=== PATIENT | male | born 1935 | race Caucasian/White ===

== ENCOUNTER → 2017-01-16 | Outpatient (CLI) | payer MEDICARE ==
[~2017-01-16] MED LIST: ATOR10 PO; CARV40 PO; COUM5TAB PO; DIGO.125 PO; PRED20 PO; PRIN10TA PO; PROT40TA PO; SUCR1TAB6 PO; TAMS0.4C67 PO
[2017-01-16 13:32] LABS: AUTOMATED NEUTROPHIL # 4.6 TH/MM3 (1.8-7.7); BASOPHIL % 0.5 % (0.0-2.0); EOSINOPHIL # 0.4 TH/MM3 (0-0.4); EOSINOPHIL % 6.2 % (0.0-4.0); LYMPH % 18.5 % (9.0-44.0); LYMPHOCYTE # 1.3 TH/MM3 (1.0-4.8); MEAN CELL VOLUME 93.4 FL (80.0-100.0); MEAN CORPUSCULAR HEMOGLOBIN 31.8 PG (27.0-34.0); MEAN CORPUSCULAR HGB CONC 34.1 % (32.0-36.0); MONO % 8.7 % (0.0-8.0); NEUT % 66.1 % (16.0-70.0); PLATELET COUNT 83 TH/MM3 (150-450); RED BLOOD COUNT 4.18 MIL/MM3 (4.50-5.90); RED CELL DISTRIBUTION WIDTH 14.7 % (11.6-17.2)
[2017-01-16 13:35] LABS: HEMO FLAGS AUTO DIFF
[2017-01-16 13:43] LABS: BICARBONATE 27.2 MEQ/L (21.0-32.0); POTASSIUM 3.5 MEQ/L (3.5-5.1); URIC ACID 2.7 MG/DL (2.6-7.2)
[2017-01-16 13:56] LABS: BLOOD, URINE NEG (NEG); GLUCOSE,URINE NEG (NEG); KETONE, URINE NEG (NEG); MUCUS URINE FEW /lpf (OCC); NITRITE,URINE NEG (NEG); PH, URINE 5.5 (5.0-8.5); URINE COLOR YELLOW (YELLW/STRAW)
[2017-01-16 14:11] LABS: OVALOCYTES 1+ (NORMAL); PLATELET ESTIMATE SMEAR LOW (NORMAL); PLATELET MORPHOLOGY NORMAL (NORMAL); SCAN/DIFF AUTO DIFF CONFIRMED
== END ==
LOC: PLAB 09:42
PROVIDERS: ATTEND Internal Medicine Nephrology
DX: E55.9 Vitamin D deficiency, unspecified (principal); M10.9 Gout, unspecified; N18.2 Chronic kidney disease, stage 2 (mild)
CPT/HCPCS: 36415; 80069; 81001; 82306; 82570; 84156; 84550; 85025

== ENCOUNTER 2018-01-13 18:03 | Emergency (ER) | payer MEDICARE ==
[~2018-01-13] VITALS: Ht 172.7 cm; Wt 77.0 kg
[2018-01-13 18:04] VITALS: BP 137/64; PULSE 80; RESP 16; TEMP 97.7; O2SAT 97
[2018-01-13] MEDS ORDERED: RANO500 PO ×2 (18:20→18:21)
[2018-01-13] MEDS ORDERED: ZANT150T2 PO (18:20)
[2018-01-13] MEDS ORDERED: DIGO0.25 PO (18:20)
[2018-01-13] MEDS ORDERED: FINA5TAB2 PO (18:20)
[2018-01-13] MEDS ORDERED: WARF-18 PO (18:20)
[2018-01-13] MEDS ORDERED: ISOS60TA PO (18:20)
[2018-01-13] MEDS ORDERED: SUCR1TAB PO (18:20)
[2018-01-13] MEDS ORDERED: TAMS5CAP PO (18:20)
[2018-01-13] MEDS ORDERED: LIPI10TA PO (18:20)
[2018-01-13] MEDS ORDERED: HYDR-3799 PO (18:20)
[2018-01-13] MEDS ORDERED: POTA-163 PO (18:20)
[2018-01-13] MEDS ORDERED: CARV6.252 PO (18:20)
[2018-01-13] MEDS ORDERED: WARF4TAB52 PO (18:20)
[2018-01-13] MEDS ORDERED: BUME2TAB PO (18:20)
[2018-01-13] MEDS ORDERED: LIDOCAINE 1%/EPINEPHrine 1:100,000 SOLN 30 ML VIAL ONE (18:40)
--- NOTE | 2018-01-13 18:41 | PD ---
HPI . Nosebleed Chief Complaint: Nosebleed Time Seen by Provider: 18:18 Travel History International Travel<30 days: No Contact w/Intl Traveler<30days: No Traveled to known affect area: No History of Present Illness HPI This patient is on Coumadin. He presents with a nosebleed which started couple of hours ago. Bleeding is controlled with pressure but immediately recurs once he stops holding pressure. He states that his INR was last checked last week. PFSH Past Medical History Hx Anticoagulant Therapy: Yes (COUMADIN AND ASA 81MG) High Cholesterol: Yes Chest Pain: Yes Coronary Artery Disease: Yes Diminished Hearing: Yes (BILATERAL HEARING LOSS,WEARS HEARING AIDE,L.EAR) GERD: Yes Genitourinary: Yes (ENLARGED PROSTATE) Hypertension: Yes Medical other: Yes Myocardial Infarction: Yes (1995) Ulcer: Yes Tetanus Vaccination: > 5 Years Influenza Vaccination: Yes Past Surgical History AICD: Yes Appendectomy: Yes Cardiac Surgery: Yes Coronary Artery Bypass Graft: Yes (1987--TRIPLE BYPASS MECHANICAL MITRAL VALVE ) Pacemaker: Yes (PLACED IN 2005 REMOVED IN 2006--PACEMAKER/DEBIB PLACED( L.CHEST WALL)) Thoracic Surgery: Yes (2006--INFUSA PORT(R.CHEST WALL)) Other Surgery: Yes ("BALLOON IN R.GROIN FOR CIRCUALTION") Social History Alcohol Use: Yes (SOCIAL) Tobacco Use: No (QUIT 1987) Substance Use: No Allergies-Medications (Allergen,Severity, Reaction): Coded Allergies: lisinopril (Verified Allergy, Severe, COUGH, 01/13/18) chlorpheniramine (Unverified Allergy, Mild, PASSED OUT, 01/13/18) hydrocodone (Unverified Allergy, Mild, PASSED OUT, 01/13/18) furosemide (Verified Allergy, Unknown, 01/13/18) Reported Meds & Prescriptions Reported Meds & Active Scripts Active Reported Ranexa ER 12 HR (Ranolazine) 500 Mg Tab 500 Mg PO Q8HR Zantac (Ranitidine HCl) 150 Mg Tab 150 Mg PO DAILY Warfarin 2.5 Mg Tab 2.5 Mg PO DIRECTED Warfarin 1 Mg Tab 1 Mg PO DIRECTED Flomax (Tamsulosin HCl) 0.4 Mg Cap 0.4 Mg PO HS Sucralfate 1 Gram Tab 1 Gm PO TID on empty stomach Potassium Chloride ER (Potassium Chloride) 20 Meq Tab 20 Meq PO WEEKLY Isosorbide Mononitrate ER (Isosorbide Mononitrate) 60 Mg Tab 60 Mg PO DAILY Hydralazine HCl 25 Mg Tablet 25 Mg PO TID Finasteride 5 Mg Tab 5 Mg PO DAILY Do not crush. Digoxin 0.25 Mg Tab 0.25 Mg PO DAILY Carvedilol 6.25 Mg Tab 6.25 Mg PO BID Bumetanide 2 Mg Tab 2 Mg PO DIRECTED Lipitor (Atorvastatin Calcium) 10 Mg Tab 10 Mg PO HS Review of Systems Except as stated in HPI: all other systems reviewed are Neg Physical Exam Narrative GENERAL: Awake and alert and in no acute distress. SKIN: Warm and dry. HEAD: Normocephalic/atraumatic. EYES: Pupils are equal. Extraocular movements are intact. ENT: Bleeding from the right nostril. NECK: Normal range of motion. RESPIRATORY: Nonlabored respirations. MUSCULOSKELETAL: Atraumatic. NEUROLOGICAL: Nonfocal. PSYCHIATRIC: Appropriate mood and affect. Data Data Last Documented VS Vital Signs Date Time Temp Pulse Resp B/P (MAP) Pulse Ox O2 Delivery O2 Flow Rate FiO2 01/13/18 18:04 97.7 80 16 137/64 (88) 97 Orders Orders Prothrombin Time / Inr (Pt) (01/13/18 18:19) Lidocai-Epi 1%-1:100,000 Inj (Xylocaine- (01/13/18 18:40) Labs Laboratory Tests Test 01/13/18 18:25 Prothrombin Time 40.8 SEC Prothromb Time International Ratio 4.1 RATIO MDM Medical Decision Making Medical Screen Exam Complete: Yes Emergency Medical Condition: Yes Differential Diagnosis Differential diagnosis includes but is not limited to epistaxis due to an upper respiratory infection, coagulopathy, local trauma, nasal fracture Narrative Course This patient presents with chief complaint of epistaxis. He is on Coumadin. INR has been ordered. Procedures Procedure Narrative NASAL PACKING: The right nare was anesthetized topically with lidocaine with epinephrine. The nare was packed with Merocel sponge. The sponge had to be trimmed to fit his nostril. Adequate control of bleeding was obtained. The patient was observed without recurrence of bleeding. Patient tolerated procedure well. Diagnosis Primary Impression: Epistaxis Patient Instructions: General Instructions, Nosebleed (ED) Additional Instructions: Packing removal in about 24 hours. Your INR is 4.1. Please hold your Coumadin until your INR is around 3. Disposition: 01 DISCHARGE HOME Condition: Stable Serena Stark MD Jan 13, 2018 18:41
[2018-01-13 19:01] LABS: INTERNATIONAL NORMALIZED RATIO 4.1 RATIO; PROTHROMBIN TIME - PATIENT 40.8 SEC (9.8-11.6)
[2018-01-13 19:30] VITALS: BP 153/75
== END 2018-01-13 19:35 | disposition home or self-care (01) ==
LOC: PHED 18:03
DX: R04.0 Epistaxis (principal); E78.00 Pure hypercholesterolemia, unspecified; I25.10 Atherosclerotic heart disease of native coronary artery without angina pectoris; K21.9 Gastro-esophageal reflux disease without esophagitis; I10 Essential (primary) hypertension; I25.2 Old myocardial infarction; H91.93 Unspecified hearing loss, bilateral; Z79.01 Long term (current) use of anticoagulants; Z79.82 Long term (current) use of aspirin
CPT/HCPCS: 30901; 85610

== ENCOUNTER → 2018-02-05 | Outpatient (CLI) | payer MEDICARE ==
[~2018-02-05] MED LIST changes: -ATOR10 PO; +BUME2TAB PO; -CARV40 PO; +CARV6.252 PO; -COUM5TAB PO; -DIGO.125 PO; +DIGO0.25 PO; +FINA5TAB2 PO; +HYDR-3799 PO; +ISOS60TA PO; +LIPI10TA PO; +POTA-163 PO; -PRED20 PO; -PRIN10TA PO; -PROT40TA PO; +RANO500 PO; +SUCR1TAB PO; -SUCR1TAB6 PO; -TAMS0.4C67 PO; +TAMS5CAP PO; +WARF-18 PO; +WARF4TAB52 PO; +ZANT150T2 PO
[2018-02-05 14:33] LABS: AUTOMATED NEUTROPHIL # 5.2 TH/MM3 (1.8-7.7); BASOPHIL % 0.6 % (0.0-2.0); EOSINOPHIL # 0.4 TH/MM3 (0-0.4); EOSINOPHIL % 4.9 % (0.0-4.0); HEMATOCRIT 31.3 % (39.0-51.0); HEMOGLOBIN 10.6 GM/DL (13.0-17.0); LYMPH % 18.3 % (9.0-44.0); LYMPHOCYTE # 1.4 TH/MM3 (1.0-4.8); MEAN CELL VOLUME 90.5 FL (80.0-100.0); MEAN CORPUSCULAR HEMOGLOBIN 30.7 PG (27.0-34.0); MEAN CORPUSCULAR HGB CONC 33.9 % (32.0-36.0); MEAN PLATELET VOLUME 8.5 FL (7.0-11.0); MONO % 8.3 % (0.0-8.0); MONOCYTE # 0.6 TH/MM3 (0-0.9); NEUT % 67.9 % (16.0-70.0); PLATELET COUNT 210 TH/MM3 (150-450); RED BLOOD COUNT 3.46 MIL/MM3 (4.50-5.90); RED CELL DISTRIBUTION WIDTH 16.5 % (11.6-17.2); WHITE BLOOD COUNT 7.7 TH/MM3 (4.0-11.0)
== END ==
LOC: PLAB 09:27
PROVIDERS: ATTEND Internal Medicine Gastroenterology
DX: K92.2 Gastrointestinal hemorrhage, unspecified (principal)
CPT/HCPCS: 36415; 85025

== ENCOUNTER → 2018-02-11 | Outpatient (CLI) | payer MEDICARE ==
[2018-02-11 15:49] LABS: AUTOMATED NEUTROPHIL # 5.9 TH/MM3 (1.8-7.7); BASOPHIL % 0.5 % (0.0-2.0); EOSINOPHIL # 0.2 TH/MM3 (0-0.4); EOSINOPHIL % 2.6 % (0.0-4.0); HEMATOCRIT 29.9 % (39.0-51.0); HEMOGLOBIN 10.1 GM/DL (13.0-17.0); LYMPH % 18.6 % (9.0-44.0); LYMPHOCYTE # 1.6 TH/MM3 (1.0-4.8); MEAN CELL VOLUME 91.1 FL (80.0-100.0); MEAN CORPUSCULAR HEMOGLOBIN 30.6 PG (27.0-34.0); MEAN CORPUSCULAR HGB CONC 33.6 % (32.0-36.0); MEAN PLATELET VOLUME 9.1 FL (7.0-11.0); MONO % 8.2 % (0.0-8.0); MONOCYTE # 0.7 TH/MM3 (0-0.9); NEUT % 70.1 % (16.0-70.0); PLATELET COUNT 182 TH/MM3 (150-450); RED BLOOD COUNT 3.29 MIL/MM3 (4.50-5.90); RED CELL DISTRIBUTION WIDTH 17.2 % (11.6-17.2); WHITE BLOOD COUNT 8.4 TH/MM3 (4.0-11.0)
== END ==
LOC: PLAB 09:39
PROVIDERS: ATTEND Internal Medicine Gastroenterology
DX: K92.2 Gastrointestinal hemorrhage, unspecified (principal)
CPT/HCPCS: 36415; 85025

== ENCOUNTER 2019-01-03 11:14 | Inpatient (IN) ==
--- NOTE | 2019-01-03 12:24 | ED ---
HPI General Chief complaint: Recheck/Abnormal Lab/Rx Stated complaint: doc sent/abnl lab Time Seen by Provider: 01/03/19 11:55 Source: patient Limitations: no limitations History of Present Illness HPI narrative: Patient is an 83-year-old male with a history of CHF, COPD, hyperlipidemia, pacemaker placement and frequent nosebleeds. Patient was hospitalized earlier in November and had been healthy and warm and with a serious nosebleed as well as a CHF exacerbation. He received 1 unit PRBCs at that time. He was discharged proximally 2-1/2 weeks ago and had a hemoglobin of 9.4. He was recently seen in his primary care physician's office and had a hemoglobin of 8 on Sunday which is 2 days ago. Patient also has history of prior GI bleed back in February 2018. Primary care physician is concerned about possible GI bleed the patient was sent here for further evaluation. No hematochezia, NO hematemesis. Denies any nosebleeds since his discharge from the hospital. He denies any abdominal pain, nausea, vomiting. No bleeding of gums. Complains of some dizziness and weakness but no palpitations and no episodes of syncope or near syncope.NO c/o CP/SOB/fever. Related Data Home Medications Medication Instructions Recorded Confirmed albuterol sulfate 2 puff INHALATION Q4H PRN 01/03/19 01/03/19 aspirin 81 mg PO DAILY 01/03/19 01/03/19 atorvastatin 10 mg PO QPM 01/03/19 01/03/19 bumetanide 2 mg PO DAILY PRN 01/03/19 01/03/19 carvedilol 6.25 mg PO DAILY 01/03/19 01/03/19 digoxin 0.125 mg PO DAILY 01/03/19 01/03/19 finasteride 5 mg PO QPM 01/03/19 01/03/19 hydralazine 25 mg PO BID 01/03/19 01/03/19 isosorbide mononitrate 30 mg PO DAILY 01/03/19 01/03/19 nitroglycerin 0.4 mg SUBLINGUAL Q5M PRN 01/03/19 01/03/19 potassium chloride 20 meq PO WEEKLY 01/03/19 01/03/19 ranolazine 500 mg PO BID 01/03/19 01/03/19 sucralfate 1 g PO TID 01/03/19 01/03/19 tamsulosin 0.4 mg PO BID 01/03/19 01/03/19 umeclidinium-vilanterol [Anoro 1 inh INHALATION Q24H 01/03/19 01/03/19 Ellipta] warfarin 2.5 mg PO DIRECTED 01/03/19 01/03/19 warfarin 5 mg PO QWEEK 01/03/19 01/03/19 Allergies Allergy/AdvReac Type Severity Reaction Status Date / Time lisinopril Allergy Severe COUGH Verified 01/03/19 13:02 chlorpheniramine Allergy Mild PASSED OUT Verified 01/03/19 13:02 hydrocodone Allergy Mild PASSED OUT Verified 01/03/19 13:02 furosemide Allergy Unknown Rash Verified 01/03/19 13:02 Review of Systems ROS: all other systems reviewed are negative [facility] Medical History Medical History CHF (congestive heart failure) (Acute) COPD (chronic obstructive pulmonary disease) (Acute) High cholesterol (Acute) Pacemaker (Acute) Surgical History Surgical History H/O heart artery stent (Acute) H/O mitral valve replacement (Acute) S/P CABG x 3 (Acute) Social History Social History Substance History: No History of Abuse Second Hand Smoke Exposure: No Smoking Status: Former smoker How Often Do You Have a Drink Containing Alcohol: Never Recent Travel in [facility] within the Last 8 Weeks: No Recent Out of Country Travel within the Last 8 Weeks: No Immunization History Tetanus Immunization: Unsure Exam Narrative Exam Narrative: GENERAL: Alert, thin, elderly gentleman SKIN: Focused skin assessment warm/dry. Ashen in color HEAD: Atraumatic. Normocephalic. EYES: Pupils equal and round. No scleral icterus. No injection or drainage. ENT: No nasal bleeding or discharge. Mucous membranes pink and moist. NECK: Trachea midline. No JVD. CARDIOVASCULAR: Regular rate and rhythm. No murmur appreciated. RESPIRATORY: No accessory muscle use. Clear to auscultation. Breath sounds equal bilaterally. GASTROINTESTINAL: Abdomen soft, non-tender, nondistended. Hepatic and splenic margins not palpable. Rectal exam reveals no obvious blood. Hemoccult negative MUSCULOSKELETAL: No obvious deformities. No clubbing. No cyanosis. No edema. NEUROLOGICAL: Awake and alert. No obvious cranial nerve deficits. Motor grossly within normal limits. Normal speech. PSYCHIATRIC: Appropriate mood and affect; insight and judgment normal. Course Initial Documented Vital Signs Temperature 97.2 F L 01/03/19 11:17 Pulse Rate 80 01/03/19 11:17 Respiratory Rate 18 01/03/19 11:17 Blood Pressure 143/66 H 01/03/19 11:17 Pulse Oximetry 99 01/03/19 11:17 Last Documented Vital Signs Temperature 97.4 F L 01/03/19 13:00 Pulse Rate 80 01/03/19 13:00 Respiratory Rate 18 01/03/19 13:00 Blood Pressure 126/58 L 01/03/19 13:00 Pulse Oximetry 97 01/03/19 13:00 Medical Decision Making JENNY Attestation JENNY supervised visit: Yes Attestation: I, Dr. Whitman, have reviewed the advance practice practitioner's documentation and am in agreement, met with the patient face to face, made the diagnosis, and the medical decision making was done by me. *My assessment and Findings: Patient is an 83-year-old female who presents the emergency room for evaluation of possible anemia. Patient was seen at an outside hospital yesterday, he was told that his hemoglobin was 8.0 and needed a blood transfusion - he was told to come to [place]. Patient reports that he thinks he was anemic as he had a severe nosebleed for the past 7 days, he is taking coumadin as well as aspirin. Patient reports that he was feeling weak yesterday, he is feeling much better today. Lab work was drawn, patient's hemoglobin is 9.5, reports that his hemoglobin was 8.0 yesterday. X-ray the chest shows a mild patchy infiltrate in the right middle lobe, some minor venous congestion. Patient denies any cough or congestion, denies fever/ chills. Plan to obtain blood cultures, will administer dose of Rocephin as well as azithromycin. I do think that if patient feels well enough, he can be discharged home with a prescription for antibiotics with outpatient follow-up. Signs and symptoms of when to return to the emergency room was reviewed with patient in detail. MDM Narrative Medical decision making narrative: Patient is an elderly gentleman, 83 years old , with a history of previous GI bleed as well as multiple nosebleeds in the past. He was hospitalized in early November and received 1 unit of blood due to bleeding. Upon discharge approximately 2-1/2 weeks ago he his hemoglobin was 9.4. 2 days ago his primary care physician rechecked his hemoglobin was 8.0. He sent to the emergency room today for further evaluation. He is normotensive. Pulse is within normal range. Complaining of some dizziness and weakness but otherwise asymptomatic. No reports of bloody stools, bloody emesis ,nosebleeds, hematuria, or other sources of bleeding. CBC with differential, type and screen, PT INR, PTT, BMP, and UA ordered. I took over case from Janie ESCALANTE. labs and imaging show what appears to be acute CHF exacerbation with possible pneumonia. Case was discussed with my attending who spoke with the patient. Patient was offered admission versus observation as overall he looks well. He does appear to the patient himself seems to be minimizing his symptoms and the is the one who is more concerned about the patient. Patient will be admitted for observation further evaluation of the pneumonia as well as to see if F. Patient understands reasons to be admitted. Case discussed with the residents for readmission to their service. Medical Screen Exam Complete: Yes Emergency Medical Condition: Yes Differential Diagnosis Differential Diagnosis: Blood loss anemia/GI bleed/iron deficiency anemia Medical Records Medical records reviewed: Yes I reviewed the patient's medical records. Lab Data Lab results reviewed: Yes I reviewed the patient's lab results. Result diagrams: 01/03/19 12:30 01/03/19 12:30 Lab Results 01/03/19 01/03/19 01/03/19 Range/Units 12:30 12:30 12:30 WBC 5.0 (4.0-11.0) th/mm3 RBC 2.82 L (4.50-5.90) mil/mm3 Hgb 9.5 L (13.0-17.0) gm/dL Hct 28.0 L (39.0-51.0) % MCV 99.6 (80.0-100.0) fL MCH 33.8 (27.0-34.0) pg MCHC 33.9 (32.0-36.0) % RDW 16.1 (11.6-17.2) % Plt Count 129 L (150-450) th/mm3 MPV 9.9 (7.0-11.0) fL Neut % (Auto) 70.6 H (16.0-70.0) % Lymph % (Auto) 18.4 (9.0-44.0) % [place] % (Auto) 6.9 (0.0-8.0) % Eos % (Auto) 3.0 (0.0-4.0) % Baso % (Auto) 1.1 (0.0-2.0) % Neut # (Auto) 3.5 (1.8-7.7) th/mm3 Lymph # (Auto) 0.9 L (1.0-4.8) th/mm3 [place] # (Auto) 0.3 (0.0-0.9) th/mm3 Eos # (Auto) 0.2 (0.0-0.4) th/mm3 Baso # (Auto) 0.1 (0.0-0.2) th/mm3 WBC Differential . Differential Comment Auto diff final PT 21.8 H (9.8-11.6) sec INR 2.2 Ratio APTT 33.1 H (23.4-31.7) sec Sodium 138 (136-145) meq/L Potassium 4.3 (3.5-5.1) meq/L Chloride 108 H (98-107) meq/L Carbon Dioxide 24.9 (21.0-32.0) meq/L Anion Gap 5 (5-15) meq/L BUN 26 H (7-18) mg/dL Creatinine 1.61 H (0.60-1.30) mg/dL Estimated GFR 41 L (>89) mL/min Random Glucose 167 H (74-106) mg/dL Calcium 8.3 L (8.5-10.1) mg/dL Troponin I (0.02-0.05) ng/mL B-Natriuretic Peptide (0-100) pg/mL Urine Color (Yellw/Straw) Urine Clarity (Clear) Urine pH (5.0-8.5) Ur Specific [place] (1.002-1.035) Urine Protein (Neg-Trace) mg/dL Urine Glucose (UA) (Negative) mg/dL Urine Ketones (Negative) mg/dL Urine Occult Blood (Negative) Urine Nitrate (Negative) Urine Bilirubin (Negative) Urine Urobilinogen (Less than 2) mg/dL Ur Leukocyte Esterase (Negative) Urine RBC (0-3) /hpf Hyaline Casts (0-3) /lpf Micro UA Comment Ur Microscopic Review Urine Culture Comments Blood Type Blood Type Recheck Antibody Screen MTS Gel Crossmatch 01/03/19 01/03/19 01/03/19 Range/Units 12:30 12:30 12:30 WBC (4.0-11.0) th/mm3 RBC (4.50-5.90) mil/mm3 Hgb (13.0-17.0) gm/dL Hct (39.0-51.0) % MCV (80.0-100.0) fL MCH (27.0-34.0) pg MCHC (32.0-36.0) % RDW (11.6-17.2) % Plt Count (150-450) th/mm3 MPV (7.0-11.0) fL Neut % (Auto) (16.0-70.0) % Lymph % (Auto) (9.0-44.0) % [place] % (Auto) (0.0-8.0) % Eos % (Auto) (0.0-4.0) % Baso % (Auto) (0.0-2.0) % Neut # (Auto) (1.8-7.7) th/mm3 Lymph # (Auto) (1.0-4.8) th/mm3 [place] # (Auto) (0.0-0.9) th/mm3 Eos # (Auto) (0.0-0.4) th/mm3 Baso # (Auto) (0.0-0.2) th/mm3 WBC Differential Differential Comment PT (9.8-11.6) sec INR Ratio APTT (23.4-31.7) sec Sodium (136-145) meq/L Potassium (3.5-5.1) meq/L Chloride (98-107) meq/L Carbon Dioxide (21.0-32.0) meq/L Anion Gap (5-15) meq/L BUN (7-18) mg/dL Creatinine (0.60-1.30) mg/dL Estimated GFR (>89) mL/min Random Glucose (74-106) mg/dL Calcium (8.5-10.1) mg/dL Troponin I 0.04 (0.02-0.05) ng/mL B-Natriuretic Peptide 227 H (0-100) pg/mL Urine Color (Yellw/Straw) Urine Clarity (Clear) Urine pH (5.0-8.5) Ur Specific [place] (1.002-1.035) Urine Protein (Neg-Trace) mg/dL Urine Glucose (UA) (Negative) mg/dL Urine Ketones (Negative) mg/dL Urine Occult Blood (Negative) Urine Nitrate (Negative) Urine Bilirubin (Negative) Urine Urobilinogen (Less than 2) mg/dL Ur Leukocyte Esterase (Negative) Urine RBC (0-3) /hpf Hyaline Casts (0-3) /lpf Micro UA Comment Ur Microscopic Review Urine Culture Comments Blood Type O Positive Blood Type Recheck Required Antibody Screen Positive H MTS Gel Crossmatch See Detail 01/03/19 Range/Units 14:15 WBC (4.0-11.0) th/mm3 RBC (4.50-5.90) mil/mm3 Hgb (13.0-17.0) gm/dL Hct (39.0-51.0) % MCV (80.0-100.0) fL MCH (27.0-34.0) pg MCHC (32.0-36.0) % RDW (11.6-17.2) % Plt Count (150-450) th/mm3 MPV (7.0-11.0) fL Neut % (Auto) (16.0-70.0) % Lymph % (Auto) (9.0-44.0) % [place] % (Auto) (0.0-8.0) % Eos % (Auto) (0.0-4.0) % Baso % (Auto) (0.0-2.0) % Neut # (Auto) (1.8-7.7) th/mm3 Lymph # (Auto) (1.0-4.8) th/mm3 [place] # (Auto) (0.0-0.9) th/mm3 Eos # (Auto) (0.0-0.4) th/mm3 Baso # (Auto) (0.0-0.2) th/mm3 WBC Differential Differential Comment PT (9.8-11.6) sec INR Ratio APTT (23.4-31.7) sec Sodium (136-145) meq/L Potassium (3.5-5.1) meq/L Chloride (98-107) meq/L Carbon Dioxide (21.0-32.0) meq/L Anion Gap (5-15) meq/L BUN (7-18) mg/dL Creatinine (0.60-1.30) mg/dL Estimated GFR (>89) mL/min Random Glucose (74-106) mg/dL Calcium (8.5-10.1) mg/dL Troponin I (0.02-0.05) ng/mL B-Natriuretic Peptide (0-100) pg/mL Urine Color Yellow (Yellw/Straw) Urine Clarity Hazy H (Clear) Urine pH 5.0 (5.0-8.5) Ur Specific [place] 1.015 (1.002-1.035) Urine Protein Negative (Neg-Trace) mg/dL Urine Glucose (UA) Negative (Negative) mg/dL Urine Ketones Negative (Negative) mg/dL Urine Occult Blood Moderate H (Negative) Urine Nitrate Negative (Negative) Urine Bilirubin Negative (Negative) Urine Urobilinogen Less than 2 (Less than 2) mg/dL Ur Leukocyte Esterase Negative (Negative) Urine RBC 61 H (0-3) /hpf Hyaline Casts 4 (0-3) /lpf Micro UA Comment Culture not ind Ur Microscopic Review Not Reportable Urine Culture Comments Culture not ind Blood Type Blood Type Recheck Antibody Screen MTS Gel Crossmatch Imaging Data Attestation: I personally reviewed and interpreted this imaging study as follows : Radiologist's impression: Chest X-Ray 01/03/19 12:33 CONCLUSION: Mild patchy infiltrate in the right middle lobe. Pulmonary venous congestion. ECG Data Attestation: I personally reviewed and interpreted this ECG as follows: Interpretation: EKG shows sinus rhythm with no sign of acute ischemia and arrhythmia read by me and attending. Discharge Plan Discharge Disposition Patient Disposition: ED Admit(ED Internal Use Only) Discharge Order Discharge Orders: ED Use Only Admit Order (Routine); Ordered 01/03/19 Ordered By: Kunal Medellin Discharge Details Diagnosis: Acute exacerbation of CHF (congestive heart failure), Pneumonia Physicians Team ED Provider: Sejal Whitman ED Midlevel Provider: Kunal Medellin Primary Care Provider: Bridger Snowden Attending Provider: Cayla Moreno Status ED Status: Admitted Observation Patient
[2019-01-03 12:45] LABS: Baso # (Auto) 0.1 th/mm3 (0.0-0.2); Baso % (Auto) 1.1 % (0.0-2.0); Eos # (Auto) 0.2 th/mm3 (0.0-0.4); Hemoglobin 9.5 gm/dL (13.0-17.0); Lymph # (Auto) 0.9 th/mm3 (1.0-4.8); Lymph % (Auto) 18.4 % (9.0-44.0); Mean Corpuscular HGB Conc 33.9 % (32.0-36.0); Mean Corpuscular Hemoglobin 33.8 pg (27.0-34.0); Mean Corpuscular Volume 99.6 fL (80.0-100.0); Mean Platelet Volume 9.9 fL (7.0-11.0); Mono # (Auto) 0.3 th/mm3 (0.0-0.9); Mono % (Auto) 6.9 % (0.0-8.0); Neut # (Auto) 3.5 th/mm3 (1.8-7.7); Neut % (Auto) 70.6 % (16.0-70.0); Platelet Count 129 th/mm3 (150-450); Red Blood Count 2.82 mil/mm3 (4.50-5.90); Red Cell Distribution Width 16.1 % (11.6-17.2)
[2019-01-03 12:59] LABS: Activated Partial Thrombo Time 33.1 sec (23.4-31.7); INR 2.2 Ratio
[2019-01-03 13:00] LABS: Prothrombin Time 21.8 sec (9.8-11.6)
[2019-01-03 13:08] LABS: Calcium 8.3 mg/dL (8.5-10.1); Carbon Dioxide 24.9 meq/L (21.0-32.0)
[2019-01-03 13:14] LABS: Potassium 4.3 meq/L (3.5-5.1)
--- NOTE | 2019-01-03 13:37 | XR ---
EXAM DATE: 01/03/2019 1:12 PM EST AGE/SEX: 83 years / Male INDICATIONS: Shortness of breath. CLINICAL DATA: This is the patient's initial encounter. Patient reports that signs and symptoms have been present for 4 - 6 days and indicates a pain score of 0/10. MEDICAL/SURGICAL HISTORY: Congestive heart failure. Chronic obstructive pulmonary disease. Hy percholesterolemia. Pacemaker. CABG. Mitral valve replacement. COMPARISON: No prior exams available for comparison. FINDINGS: There is a patchy infiltrate in the right middle lobe. The left lung is grossly clear. There are no p leural effusions. There is some prominence of the pulmonary vasculature. The heart size is within nor mal limits. There is evidence of previous cardiothoracic surgery. There is a pacemaker overlying the left chest. The bony structures are grossly intact. CONCLUSION: Mild patchy infiltrate in the right middle lobe. Pulmonary venous congestion. Electronically signed by: Raúl Strong MD Board Certified Radiologist 01/03/2019 1:35 PM EST
[2019-01-03] MEDS ORDERED: Azithromycin Inj 500 MG in Sodium Chlor 0.9% Inj 250 ML IV.SIG ONE (13:58)
[2019-01-03 15:02] LABS: Bilirubin,Urine Negative (Negative); Clarity,Urine Hazy (Clear); Color,Urine Yellow (Yellw/Straw); Glucose,Urine (UA) Negative (Negative); Hyaline Casts,Urine 4 /lpf (0-3); Leukocyte Esterase,Urine Negative (Negative); Nitrite,Urine Negative (Negative); Specific Gravity,Urine 1.015 (1.002-1.035)
--- NOTE | 2019-01-03 15:23 | P.HPFP ---
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 Patient reports that yesterday he had symptoms of weakness, off balance and worsening dyspnea on exertion. The dyspnea on exertion has been progressively worsening since October when he began having severe nosebleeds. Since October he has been hospitalized multiple times for nosebleeds requiring blood transfusions. Of note patient also has a history of GI bleed that occurred last year after removal of a colon polyp per . At that time colonoscopy was only significant for 1 polyp which was removed and negative for malignancy. Today patient reports that he feels okay. His shortness of breath is only an issue if he exerts himself, even minimal exertion causes dyspnea, simple things such as tying his shoes or walking to the bathroom. Currently denies chest pain, shortness of breath while at rest, fever, cough, current nose bleed or blood in stool, nausea, vomiting, or syncope. Endorses chills overnight, progressive poor appetite. Patient last felt at his baseline before Oct 2018. Patient has dual residency with [place] and [place]. Him and his usually spend the zhu in [place]. He arrived to [place] via car on December 02 and was hospitalized for nosebleeds at [facility] requiring transfusion of 1 unit of packed red blood cell. Fitter Helper: Dr. Machado Past medical history: Mechanical mitral valve, 1987 Pacemaker, 1997 History of surgical sponge left in chest for 4 yrs after initial pacemaker was placed triple by-pass, 1987 COPD GI bleed Past surgical history: Appendectomy as a child Stent placement in Right groin, Social history: Patient ambulates independently without need of assistive devices. Cigarettes, patient quit in 1987, former smoker 35 yrs of smoking Alcohol, rarely Illicit:none Family history: Father- from [place] at age 62 Mother- stroke Sister- stroke Brother- heart issues <Eden MarckRonald 01/03/19 21:30> - Diagnosis (1) Anemia (2) Community acquired pneumonia (3) CHF (congestive heart failure) (4) H/O mitral valve replacement with mechanical valve (5) Subtherapeutic international normalized ratio (INR) (6) COPD (chronic obstructive pulmonary disease) (7) Nutrition, metabolism, and development symptoms <Cayla Moreno 01/03/19 22:14> (1) Anemia (2) Community acquired pneumonia (3) CHF (congestive heart failure) (4) H/O mitral valve replacement with mechanical valve (5) Subtherapeutic international normalized ratio (INR) (6) COPD (chronic obstructive pulmonary disease) (7) Nutrition, metabolism, and development symptoms <Ronald Causey 01/03/19 21:31> Review of Systems All other systems reviewed negative except as stated in HPI <Ronald Causey 01/03/19 20:31> PMFSH - History History Provided By: Patient <Ronald Causey 01/03/19 15:23> - Medical History Medical History: Medical History (Last Reviewed 01/03/19 @ 12:27 by AMANDEEP Patel) CHF (congestive heart failure) COPD (chronic obstructive pulmonary disease) High cholesterol Pacemaker <Cayla Moreno 01/03/19 22:14> Medical History (Last Reviewed 01/03/19 @ 12:27 by AMANDEEP Patel) CHF (congestive heart failure) COPD (chronic obstructive pulmonary disease) High cholesterol Pacemaker <Ronald Causey 01/03/19 15:23> - Surgical History Surgical History: Surgical History (Last Reviewed 01/03/19 @ 12:27 by AMANDEEP Patel) H/O heart artery stent H/O mitral valve replacement S/P CABG x 3 <Cayla Moreno 01/03/19 22:14> Surgical History (Last Reviewed 01/03/19 @ 12:27 by AMANDEEP Patel) H/O heart artery stent H/O mitral valve replacement S/P CABG x 3 <Ronald Causey 01/03/19 15:23> - Tobacco History Second Hand Smoke Exposure: No <Wang Causeyjaimee Mccall - 01/03/19 15:23> Smoking Status: Former smoker <FrancomarquezRonald Duarte 01/03/19 15:23> - Alcohol History How Often Do You Have a Drink Containing Alcohol: Never <Rafaela MarckRonald 01/03/19 15:23> - Substance Use History Substance History: No History of Abuse <Ronald Causey 01/03/19 15:23> - Travel History Recent Travel in the [place] Within the Last 8 Weeks: No <Eden MarckRonald 15:23> Recent Travel Out of the Country Within the Last 8 Weeks: No <Ronald Causey 01/03/19 15:23> - Immunization History Tetanus Immunization: Unsure <Ronald Causey 01/03/19 15:23> Medications and Allergies Allergies Allergy/AdvReac Type Severity Reaction Status Date / Time lisinopril Allergy Severe COUGH Verified 01/03/19 13:02 chlorpheniramine Allergy Mild PASSED OUT Verified 01/03/19 13:02 hydrocodone Allergy Mild PASSED OUT Verified 01/03/19 13:02 furosemide Allergy Unknown Rash Verified 01/03/19 13:02 <Cayla Moreno - 01/03/19 22:14> Home Medications Medication Instructions Recorded Confirmed Type albuterol sulfate 2 puff INHALATION Q4H PRN 01/03/19 01/03/19 History aspirin 81 mg PO DAILY 01/03/19 01/03/19 History atorvastatin 10 mg PO QPM 01/03/19 01/03/19 History bumetanide 2 mg PO DAILY PRN 01/03/19 01/03/19 History carvedilol 6.25 mg PO DAILY 01/03/19 01/03/19 History digoxin 0.125 mg PO DAILY 01/03/19 01/03/19 History finasteride 5 mg PO QPM 01/03/19 01/03/19 History hydralazine 25 mg PO BID 01/03/19 01/03/19 History isosorbide mononitrate 30 mg PO DAILY 01/03/19 01/03/19 History nitroglycerin 0.4 mg SUBLINGUAL Q5M PRN 01/03/19 01/03/19 History potassium chloride 20 meq PO WEEKLY 01/03/19 01/03/19 History ranolazine 500 mg PO BID 01/03/19 01/03/19 History sucralfate 1 g PO TID 01/03/19 01/03/19 History tamsulosin 0.4 mg PO BID 01/03/19 01/03/19 History umeclidinium-vilanterol [Anoro 1 inh INHALATION Q24H 01/03/19 01/03/19 History Ellipta] warfarin 2.5 mg PO DIRECTED 01/03/19 01/03/19 History warfarin 5 mg PO QWEEK 01/03/19 01/03/19 History <Cayla Moreno - 01/03/19 22:14> Active Medications: Active Medications Acetaminophen (Tylenol) 650 mg PO Q4H PRN PRN Reason: Temp > 100.4 Al Hydroxide/Mg Hydroxide (Milk Of Magnesia Liq) 30 ml PO Q12H PRN PRN Reason: Mild Constipation Albuterol (Ventolin Hfa Inh) 2 puff INH Q4H PRN PRN Reason: SHORTNESS OF BREATH/WHEEZING Atorvastatin Calcium (Lipitor) 10 mg PO QPM [facility] Last Admin: 01/03/19 17:27 Dose: 10 mg Bisacodyl (Dulcolax Supp) 10 mg RECTAL DAILY PRN PRN Reason: SEVERE CONSITIPATION Bumetanide (Bumex Inj) 1 mg IV.PUSH DAILY [facility] Last Admin: 01/03/19 19:35 Dose: 1 mg Carvedilol (Coreg) 6.25 mg PO DAILY [facility] Digoxin (Lanoxin) 125 mcg PO DAILY [facility] Hydralazine HCl (Apresoline) 25 mg PO BID [facility] Last Admin: 01/03/19 20:55 Dose: 25 mg Azithromycin 500 mg/ Sodium (Chloride) 250 mls @ 250 mls/hr IV.SIG ONCE ONE Stop: 01/04/19 16:59 Ceftriaxone Sodium 1,000 mg/ (Sodium Chloride) 100 mls @ 200 mls/hr IV.SIG Q12H [facility] Isosorbide Mononitrate (Imdur) 30 mg PO DAILY [facility] Lactulose (Lactulose Liq) 30 ml PO DAILY PRN PRN Reason: SEVERE CONSITIPATION Ondansetron HCl (Zofran Inj) 4 mg IV.PUSH Q6H PRN PRN Reason: NAUSEA OR VOMITING Senna/Docusate Sodium (Kia-Colace) 1 tab PO BID [facility] Last Admin: 01/03/19 21:03 Dose: Not Given Sennosides (Senokot) 17.2 mg PO Q12H PRN PRN Reason: Moderate Constipation Sodium Chloride (Ns Flush) 2 ml IV.FLUSH BID [facility] Last Admin: 01/03/19 20:56 Dose: 2 ml Sodium Chloride (Ns Flush) 2 ml IV.FLUSH PRN PRN PRN Reason: FLUSH AFTER USING IV ACCESS Tamsulosin HCl (Flomax) 0.4 mg PO BID [facility] Last Admin: 01/03/19 20:55 Dose: 0.4 mg Umeclidinium/Vilanterol (Anoro-Ellipta 62.5/25 Mcg Inh) 1 inhalation INH Q24H [facility] Last Admin: 01/03/19 17:25 Dose: 1 inhalation <Cayla Moreno - 01/03/19 22:14> Exam Vital signs: Vital Signs 01/03/19 11:17 01/03/19 11:35 01/03/19 13:00 Temperature 97.2 F L 97.4 F L Pulse Rate 80 80 80 Respiratory Rate 18 20 18 Blood Pressure 143/66 H 162/73 H 126/58 L Pulse Oximetry 99 97 97 01/03/19 16:06 01/03/19 16:30 Temperature 98.1 F 98.1 F Pulse Rate 79 79 Respiratory Rate 16 16 Blood Pressure 108/58 L 108/56 L Pulse Oximetry 98 Intake & Output 01/03/19 01/03/19 01/04/19 06:59 18:59 06:59 Intake Total 350 / 350 Balance 350 / 350 Weight 74.843 kg Intake: IV 350 / 350 Azithromycin Inj 500 MG In NS 250 / 250 Inj 250 ML @ 250 mls/hr IV.SIG ONCE ONE Rx#:[id number] Rocephin Inj 1,000 MG In NS Inj 100 / 100 100 ML @ 200 mls/hr IV.SIG ONCE ONE Rx#:[id number] Other: # Voids 2 Date of Last Bowel Movement 01/03/19 Weight On Admission 74.843 kg <Cayla Moreno - 01/03/19 22:14> Vital Signs 01/03/19 11:17 01/03/19 11:35 01/03/19 13:00 Temperature 97.2 F L 97.4 F L Pulse Rate 80 80 80 Respiratory Rate 18 20 18 Blood Pressure 143/66 H 162/73 H 126/58 L Pulse Oximetry 99 97 97 Intake & Output 01/02/19 01/03/19 01/03/19 18:59 06:59 18:59 Intake Total 100 / 100 Balance 100 / 100 Weight 70.76 kg Intake: IV 100 / 100 Rocephin Inj 1,000 MG In NS Inj 100 / 100 100 ML @ 200 mls/hr IV.SIG ONCE ONE Rx#:[id number] <Calzado R2,Ronald D - 01/03/19 15:23> - Constitutional no acute distress <Calzado R2,Ronald D - 01/03/19 20:42> - Routine HEENT Exam Eye: Present: EOMI, PERRL <Calzado R2,Ronald D 01/03/19 20:42> ENT: Present: mucous membranes moist <Calzado R2,Ronald D - 01/03/19 20:42> - Routine Neck Exam Present: supple <Calzado R2,Ronald D 01/03/19 20:42> - Routine Chest/Breast/Axilla Exam Chest wall: Absent: tenderness <Calzado R2,Ronald D - 01/03/19 20:42> - Routine Respiratory Exam Present: CTA bilaterally (course breath sound at lower bases BL). Absent: accessory muscle use, wheezes, crackles <Calzado R2,Ronald D - 01/03/19 21:39> - Routine Cardiovascular Exam Present: RRR, S1, S2. Absent: murmur, gallop, rubs <Calzado R2,Ronald D - 20:42> - Routine Abdominal Exam Present: soft. Absent: tenderness, distended, rebound, guarding <Calzado R2, Ronald D - 01/03/19 20:42> - Routine Extremities Exam Present: edema (trace edema LE BL), normal capillary refill. Absent: cyanosis, calf tenderness, tenderness <Calzado R2,Ronald D - 01/03/19 20:42> - Routine Skin Exam Present: intact <Calzado R2,Ronald D - 01/03/19 20:42> - Routine Neurological Exam Present: oriented X3, CN II-XII intact, moving all extremities. Absent: altered mental status <Ronald Causey D - 01/03/19 20:42> Results - Labs Result diagrams: 01/03/19 18:35 01/03/19 12:30 <Cayla Moreno - 01/03/19 22:14> Abnormal lab results 01/03/19 01/03/19 01/03/19 Range/Units 12:30 12:30 12:30 RBC 2.82 L (4.50-5.90) mil/mm3 Hgb 9.5 L (13.0-17.0) gm/dL Hct 28.0 L (39.0-51.0) % Plt Count 129 L (150-450) th/mm3 Neut % (Auto) 70.6 H (16.0-70.0) % Lymph # (Auto) 0.9 L (1.0-4.8) th/mm3 PT 21.8 H (9.8-11.6) sec APTT 33.1 H (23.4-31.7) sec Chloride 108 H (98-107) meq/L BUN 26 H (7-18) mg/dL Creatinine 1.61 H (0.60-1.30) mg/dL Estimated GFR 41 L (>89) mL/min Random Glucose 167 H (74-106) mg/dL Calcium 8.3 L (8.5-10.1) mg/dL B-Natriuretic Peptide (0-100) pg/mL Urine Clarity (Clear) Urine Occult Blood (Negative) Urine RBC (0-3) /hpf Antibody Screen MTS Gel Crossmatch 01/03/19 01/03/19 01/03/19 Range/Units 12:30 12:30 14:15 RBC (4.50-5.90) mil/mm3 Hgb (13.0-17.0) gm/dL Hct (39.0-51.0) % Plt Count (150-450) th/mm3 Neut % (Auto) (16.0-70.0) % Lymph # (Auto) (1.0-4.8) th/mm3 PT (9.8-11.6) sec APTT (23.4-31.7) sec Chloride (98-107) meq/L BUN (7-18) mg/dL Creatinine (0.60-1.30) mg/dL Estimated GFR (>89) mL/min Random Glucose (74-106) mg/dL Calcium (8.5-10.1) mg/dL B-Natriuretic Peptide 227 H (0-100) pg/mL Urine Clarity Hazy H (Clear) Urine Occult Blood Moderate H (Negative) Urine RBC 61 H (0-3) /hpf Antibody Screen Positive H MTS Gel Crossmatch See Detail 01/03/19 Range/Units 18:35 RBC (4.50-5.90) mil/mm3 Hgb 8.7 L (13.0-17.0) gm/dL Hct 24.8 L (39.0-51.0) % Plt Count (150-450) th/mm3 Neut % (Auto) (16.0-70.0) % Lymph # (Auto) (1.0-4.8) th/mm3 PT (9.8-11.6) sec APTT (23.4-31.7) sec Chloride (98-107) meq/L BUN (7-18) mg/dL Creatinine (0.60-1.30) mg/dL Estimated GFR (>89) mL/min Random Glucose (74-106) mg/dL Calcium (8.5-10.1) mg/dL B-Natriuretic Peptide (0-100) pg/mL Urine Clarity (Clear) Urine Occult Blood (Negative) Urine RBC (0-3) /hpf Antibody Screen MTS Gel Crossmatch Short CBC 01/03/19 01/03/19 Range/Units 12:30 18:35 WBC 5.0 (4.0-11.0) th/mm3 Hgb 9.5 L 8.7 L (13.0-17.0) gm/dL Hct 28.0 L 24.8 L (39.0-51.0) % Plt Count 129 L (150-450) th/mm3 BMP 01/03/19 12:30 Sodium 138 Potassium 4.3 Chloride 108 H Carbon Dioxide 24.9 BUN 26 H Creatinine 1.61 H Calcium 8.3 L Cardiac Enzymes 01/03/19 01/03/19 Range/Units 12:30 18:37 Troponin I 0.04 0.05 (0.02-0.05) ng/mL Urine 01/03/19 Range/Units 14:15 Urine Color Yellow (Yellw/Straw) Urine Clarity Hazy H (Clear) Urine pH 5.0 (5.0-8.5) Ur Specific Williams 1.015 (1.002-1.035) Urine Protein Negative (Neg-Trace) mg/dL Urine Glucose (UA) Negative (Negative) mg/dL <Cayla Moreno - 01/03/19 22:14> Abnormal lab results 01/03/19 01/03/19 01/03/19 Range/Units 12:30 12:30 12:30 RBC 2.82 L (4.50-5.90) mil/mm3 Hgb 9.5 L (13.0-17.0) gm/dL Hct 28.0 L (39.0-51.0) % Plt Count 129 L (150-450) th/mm3 Neut % (Auto) 70.6 H (16.0-70.0) % Lymph # (Auto) 0.9 L (1.0-4.8) th/mm3 PT 21.8 H (9.8-11.6) sec APTT 33.1 H (23.4-31.7) sec Chloride 108 H (98-107) meq/L BUN 26 H (7-18) mg/dL Creatinine 1.61 H (0.60-1.30) mg/dL Estimated GFR 41 L (>89) mL/min Random Glucose 167 H (74-106) mg/dL Calcium 8.3 L (8.5-10.1) mg/dL B-Natriuretic Peptide (0-100) pg/mL Antibody Screen MTS Gel Crossmatch 01/03/19 01/03/19 Range/Units 12:30 12:30 RBC (4.50-5.90) mil/mm3 Hgb (13.0-17.0) gm/dL Hct (39.0-51.0) % Plt Count (150-450) th/mm3 Neut % (Auto) (16.0-70.0) % Lymph # (Auto) (1.0-4.8) th/mm3 PT (9.8-11.6) sec APTT (23.4-31.7) sec Chloride (98-107) meq/L BUN (7-18) mg/dL Creatinine (0.60-1.30) mg/dL Estimated GFR (>89) mL/min Random Glucose (74-106) mg/dL Calcium (8.5-10.1) mg/dL B-Natriuretic Peptide 227 H (0-100) pg/mL Antibody Screen Positive H MTS Gel Crossmatch See Detail Short CBC 01/03/19 Range/Units 12:30 WBC 5.0 (4.0-11.0) th/mm3 Hgb 9.5 L (13.0-17.0) gm/dL Hct 28.0 L (39.0-51.0) % Plt Count 129 L (150-450) th/mm3 BMP 01/03/19 12:30 Sodium 138 Potassium 4.3 Chloride 108 H Carbon Dioxide 24.9 BUN 26 H Creatinine 1.61 H Calcium 8.3 L Cardiac Enzymes 01/03/19 Range/Units 12:30 Troponin I 0.04 (0.02-0.05) ng/mL <Ronald Causey D - 01/03/19 15:23> - Imaging Impressions Chest X-Ray 01/03/19 12:33 CONCLUSION: Mild patchy infiltrate in the right middle lobe. Pulmonary venous congestion. <Cayla Moreno - 01/03/19 22:14> Impressions Chest X-Ray 01/03/19 12:33 CONCLUSION: Mild patchy infiltrate in the right middle lobe. Pulmonary venous congestion. <Ronald Causey D - 01/03/19 15:23> Caprini VTE Risk Assessment Caprini VTE Risk Assessment: Moderate/High Risk (score >= 2) <Ronald Causey - 01/03/19 20:42> Caprini Risk Assessment Model: Point Value = 1 Point Value = 2 Point Value = 3 Point Value = 5 Age 41-60 Minor surgery BMI > 25 kg/m2 Swollen legs Varicose veins or History of unexplained or recurrent spontaneous Oral contraceptives or hormone replacement Sepsis (< 1 month) Serious lung disease, including pneumonia (< 1 month) Abnormal pulmonary function Acute myocardial infarction Congestive heart failure (< 1 month) History of inflammatory bowel disease Medical patient at bed rest Age 61-74 Arthroscopic surgery Major open surgery (> 45 min) Laparoscopic surgery (> 45 min) Malignancy Confined to bed (> 72 hours) Immobilizing plaster cast Central venous access Age >= 75 History of VTE Family history of VTE Factor V Leiden Prothrombin [id number] Lupus anticoagulant Anticardiolipin antibodies Elevated serum homocysteine Heparin-induced thrombocytopenia Other congenital or acquired thrombophilia Stroke (< 1 month) Elective arthroplasty Hip, pelvis, or leg fracture Acute spinal cord injury (< 1 month) <Cayla Moreno - 01/03/19 22:14> Point Value = 1 Point Value = 2 Point Value = 3 Point Value = 5 Age 41-60 Minor surgery BMI > 25 kg/m2 Swollen legs Varicose veins or History of unexplained or recurrent spontaneous Oral contraceptives or hormone replacement Sepsis (< 1 month) Serious lung disease, including pneumonia (< 1 month) Abnormal pulmonary function Acute myocardial infarction Congestive heart failure (< 1 month) History of inflammatory bowel disease Medical patient at bed rest Age 61-74 Arthroscopic surgery Major open surgery (> 45 min) Laparoscopic surgery (> 45 min) Malignancy Confined to bed (> 72 hours) Immobilizing plaster cast Central venous access Age >= 75 History of VTE Family history of VTE Factor V Leiden Prothrombin [id number] Lupus anticoagulant Anticardiolipin antibodies Elevated serum homocysteine Heparin-induced thrombocytopenia Other congenital or acquired thrombophilia Stroke (< 1 month) Elective arthroplasty Hip, pelvis, or leg fracture Acute spinal cord injury (< 1 month) <Ronald Causey - 01/03/19 15:23> Prophylaxis Regimen: Total Risk Factor Score Risk Level Prophylaxis Regimen 0-1 Low Early ambulation 2 Moderate Order ONE of the following: *Sequential Compression Device (SCD) *Heparin 5000 units SQ BID 3-4 Higher Order ONE of the following medications: *Heparin 5000 units SQ TID *Enoxaparin/Lovenox 40 mg SQ daily (WT < 150 kg, CrCl > 30 mL/min) *Enoxaparin/Lovenox 30 mg SQ daily (WT < 150 kg, CrCl > 10-29 mL/min) *Enoxaparin/Lovenox 30 mg SQ BID (WT < 150 kg, CrCl > 30 mL/min) AND/OR *Sequential Compression Device (SCD) 5 or more Highest Order ONE of the following medications: *Heparin 5000 units SQ TID (Preferred with Epidurals) *Enoxaparin/Lovenox 40 mg SQ daily (WT < 150 kg, CrCl > 30 mL/min) *Enoxaparin/Lovenox 30 mg SQ daily (WT < 150 kg, CrCl > 10-29 mL/min) *Enoxaparin/Lovenox 30 mg SQ BID (WT < 150 kg, CrCl > 30 mL/min) AND *Sequential Compression Device (SCD) <Cayla Moreno - 01/03/19 22:14> Total Risk Factor Score Risk Level Prophylaxis Regimen 0-1 Low Early ambulation 2 Moderate Order ONE of the following: *Sequential Compression Device (SCD) *Heparin 5000 units SQ BID 3-4 Higher Order ONE of the following medications: *Heparin 5000 units SQ TID *Enoxaparin/Lovenox 40 mg SQ daily (WT < 150 kg, CrCl > 30 mL/min) *Enoxaparin/Lovenox 30 mg SQ daily (WT < 150 kg, CrCl > 10-29 mL/min) *Enoxaparin/Lovenox 30 mg SQ BID (WT < 150 kg, CrCl > 30 mL/min) AND/OR *Sequential Compression Device (SCD) 5 or more Highest Order ONE of the following medications: *Heparin 5000 units SQ TID (Preferred with Epidurals) *Enoxaparin/Lovenox 40 mg SQ daily (WT < 150 kg, CrCl > 30 mL/min) *Enoxaparin/Lovenox 30 mg SQ daily (WT < 150 kg, CrCl > 10-29 mL/min) *Enoxaparin/Lovenox 30 mg SQ BID (WT < 150 kg, CrCl > 30 mL/min) AND *Sequential Compression Device (SCD) <Ronald Causey - 01/03/19 15:23> Assessment and Plan - Assessment (1) Anemia Code(s): D64.9 - Anemia, unspecified Status: Acute (2) Community acquired pneumonia Code(s): J18.9 - Pneumonia, unspecified organism Status: Acute (3) CHF (congestive heart failure) Code(s): I50.9 - Heart failure, unspecified Status: Acute (4) H/O mitral valve replacement with mechanical valve Code(s): Z95.2 - Presence of prosthetic heart valve Status: Acute (5) Subtherapeutic international normalized ratio (INR) Code(s): R79.1 - Abnormal coagulation profile Status: Acute (6) COPD (chronic obstructive pulmonary disease) Code(s): J44.9 - Chronic obstructive pulmonary disease, unspecified Status: Acute (7) Nutrition, metabolism, and development symptoms Code(s): R63.8 - Other symptoms and signs concerning food and fluid intake Status: Acute <Cayla Moreno - 01/03/19 22:14> (1) Anemia Code(s): D64.9 - Anemia, unspecified Status: Acute Plan: Patient is a 83-year-old male with significant past medical history of 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 Patient has had progressive sxs of malaise and dyspnea on minimal exertion associated with prior h/o of severe bleeds (most recent at the beginning of 2017). Denies any current nose bleed or blood in stool. In the ED patient H/H was found to be 9.5/28.0 however due to worsening sxs of dyspnea was admitted for management of chf exacerbation complicated by pna. Troponin in the ED 0.04 VS WNL Trend H&H Transfuse if Hgb less than 8 (2) Community acquired pneumonia Code(s): J18.9 - Pneumonia, unspecified organism Status: Acute Plan: In the ED patient found to have CXR showing mild patchy infiltrate in the right middle lobe. Pulmonary venous congestion. Patient received 1 dose of azithromycin and Rocephin in the ED. VS WNL no leukocytosis Continue to monitor vital signs Titrate oxygen as needed to keep O2 sats greater than 92% Continue with azithromycin and Rocephin for community-acquired pneumonia Consider broadening antibiotic coverage if patient develops fever Follow-up: A.m. labs Blood cultures Pro-calcitonin (3) CHF (congestive heart failure) Code(s): I50.9 - Heart failure, unspecified Status: Acute Plan: Patient history of CHF with complaint of worsening dyspnea on minimal exertion. Admitted for management of CHF exacerbation. Patient's vital signs within normal limits Comfortable while at rest. BNP 227 Patient is allergic to Lasix however has tolerated Bumex well for diuresis Bumex 1 mg IV daily placed on telemetry Serial troponins and EKG Strict I's and O's Cardiac diet Follow-up repeat BNP (4) H/O mitral valve replacement with mechanical valve Code(s): Z95.2 - Presence of prosthetic heart valve Status: Acute Plan: Patient with history of mechanical mitral valve on warfarin. INR goal for this type of valve is 3. INR subtherapeutic at 2.2 Home dosages of warfarin on hold due to possible elevation of INR while patient is on antibiotics. Patient given one-time dose of warfarin 3 mg this evening with plan to recheck INR in the morning. No active bleeding per nose or rectum (5) Subtherapeutic international normalized ratio (INR) Code(s): R79.1 - Abnormal coagulation profile Status: Acute Plan: See above plan (6) COPD (chronic obstructive pulmonary disease) Code(s): J44.9 - Chronic obstructive pulmonary disease, unspecified Status: Acute Plan: Patient with chronic history of COPD Continue with home medication (7) Nutrition, metabolism, and development symptoms Code(s): R63.8 - Other symptoms and signs concerning food and fluid intake Status: Acute Plan: Fluids: Not indicated at this time Electrolytes: Replete as needed Diet cardiac diet, low sodium and fluid restriction DVT prophylaxis: Patient on warfarin therapy <Ronald Causey - 01/03/19 21:31> - Attending Attestation Patient seen and examined, discussed with resident team. I agree with assessment and management as documented and discussed with me. Additional diagnosis: acute kidney injury: Unknown if chronic vs acute kidney injury. Monitor BMP in AM. thrombocytopenia: mild. No obvious active bleeding. Monitor with CBC in AM. <Cayla Moreno - 01/03/19 22:14>
[2019-01-03] MEDS ORDERED: Bisacodyl 10 MG Supp RECTAL PRN (15:38)
[2019-01-03] MEDS ORDERED: Acetaminophen 325 MG Tablet PO PRN (15:38)
[2019-01-03] MEDS: Umeclindinium 62.5 MCG/Vilanterol 25 MCG Inhaler INH SCH (17:25)
[2019-01-03 18:57] LABS: Hematocrit 24.8 % (39.0-51.0); Hemoglobin 8.7 gm/dL (13.0-17.0)
[2019-01-03] MEDS: hydrALAZINE 25 MG Tablet PO SCH (20:55)
[2019-01-03] MEDS: Senna/Docusate Sodium 8.6/50 MG Tablet PO SCH (21:03)
[2019-01-03 22:54] LABS: Hematocrit 23.5 % (39.0-51.0); Hemoglobin 8.2 gm/dL (13.0-17.0)
[2019-01-03] MEDS ORDERED: Sodium Chlor 0.9% Inj 250 ML IV.SIG SCH (23:45)
--- NOTE | 2019-01-04 04:32 | P.PNADD ---
Addendum to Inpatient Note Reason for Addendum: Additional Documentation Additional information: Residents paged by nurse due to patient complaining of sob and chills after receiving 1 unit of PRBCs. Patient O2 saturations remain above 92% on RA. Patient was seen and evaluated at bedside by resident team. He had received bumex 1mg appx 30mins ago and on exam reported feeling slightly better. He complained the room cold. No other issues. Vital Signs Temp Pulse Resp BP Pulse Ox 01/04/19 03:20 98.5 F 80 20 151/65 H 94 L 01/04/19 01:08 98.1 F 80 18 144/69 H 96 01/04/19 00:48 98.0 F 78 18 139/67 97 01/03/19 16:30 98.1 F 79 16 108/56 L 98 01/03/19 16:06 98.1 F 79 16 108/58 L 01/03/19 13:00 97.4 F L 80 18 126/58 L 97 01/03/19 11:35 80 20 162/73 H 97 01/03/19 11:17 97.2 F L 80 18 143/66 H 99 Intake and Output 01/03/19 01/03/19 01/04/19 14:59 22:59 06:59 Intake Total 100 / 100 250 / 250 400 / 400 Balance 100 / 100 250 / 250 400 / 400 Intake: IV 100 / 100 250 / 250 Azithromycin Inj 500 MG In NS 250 / 250 Inj 250 ML @ 250 mls/hr IV.SIG ONCE ONE Rx#:[id number] Rocephin Inj 1,000 MG In NS Inj 100 / 100 100 ML @ 200 mls/hr IV.SIG ONCE ONE Rx#:[id number] Intake (Blood Product) Amt 400 / 400 Rbc As-3 Leukoreduced Unit 400 / 400 [id number] Other: # Voids 2 Date of Last Bowel Movement 01/03/19 Weight 70.76 kg 74.843 kg Weight On Admission 74.843 kg Patient Weight 01/04/19 06:59 Weight 74.843 kg Exam GEN: white male laying in bed, NAD Resp: no wheezing or rales, mild congestion appreciated at lower bases BL cardio: normal s1 and s2, no murmurs, gallops or rubs Ext: well perfused, only trace edema stable from admission exam Plan: Shainab x1 albuterol neb prn for sob recheck vs Another dose of bumex if pt sxs do not improve in next 30mins will hold off for now on giving another unit of PRBCs
[2019-01-04 07:34] LABS: INR 1.9 Ratio; Prothrombin Time 19.4 sec (9.8-11.6)
[2019-01-04 07:37] LABS: Baso % (Auto) 0.5 % (0.0-2.0); Eos # (Auto) 0.1 th/mm3 (0.0-0.4); Eos % (Auto) 0.9 % (0.0-4.0); Hematocrit 31.1 % (39.0-51.0); Hemoglobin 10.7 gm/dL (13.0-17.0); Lymph # (Auto) 0.8 th/mm3 (1.0-4.8); Mean Corpuscular HGB Conc 34.4 % (32.0-36.0); Mean Corpuscular Hemoglobin 33.1 pg (27.0-34.0); Mean Corpuscular Volume 96.3 fL (80.0-100.0); Mean Platelet Volume 9.4 fL (7.0-11.0); Mono # (Auto) 0.8 th/mm3 (0.0-0.9); Mono % (Auto) 10.2 % (0.0-8.0); Neut # (Auto) 5.8 th/mm3 (1.8-7.7); Neut % (Auto) 77.4 % (16.0-70.0); Platelet Count 124 th/mm3 (150-450); Red Blood Count 3.23 mil/mm3 (4.50-5.90); Red Cell Distribution Width 16.5 % (11.6-17.2); White Blood Count 7.5 th/mm3 (4.0-11.0)
[2019-01-04 07:56] LABS: Alanine Aminotransferase 14 U/L (12-78); Albumin 3.4 g/dL (3.4-5.0); Anion Gap 10 meq/L (5-15); Aspartate Aminotransferase 15 U/L (15-37); Blood Urea Nitrogen 32 mg/dL (7-18); Calcium 8.7 mg/dL (8.5-10.1); Carbon Dioxide 22.3 meq/L (21.0-32.0); Chloride 107 meq/L (98-107); Glomerular Filtration Rate 38 mL/min (>89); Glucose,Random 110 mg/dL (74-106); Potassium 4.3 meq/L (3.5-5.1); Sodium 139 meq/L (136-145)
[2019-01-04 07:58] LABS: Alkaline Phosphatase 118 U/L (45-117); Total Protein 8.4 g/dL (6.4-8.2)
--- NOTE | 2019-01-04 09:29 | ECG ---
Date Performed: 01/04/2019 Time Performed: 04:21:06 PTAGE: 83 years EKG: Unclear underlying rhythm ELECTRONIC VENTRICULAR PACEMAKER ABNORMAL RHYTHM ECG Compared to prior electrocardiogram, QRS morphology has changed although this could be due to pacing modality. PREVIOUS TRACING : 02/27/2010 15.22 DOCTOR: Abdifatah Bernabe Interpretating Date/Time 01/04/2019 09:27:37
[2019-01-04] MEDS: Senna/Docusate Sodium 8.6/50 MG Tablet PO SCH ×2 (10:27→22:21)
[2019-01-04] MEDS: Digoxin 125 MCG Tablet PO SCH (10:28)
[2019-01-04] MEDS: Carvedilol 6.25 MG Tablet PO SCH (10:29)
[2019-01-04] MEDS: Isosorbide Mononitrate 30 MG ER 24HR Tablet (Imdur) PO SCH (10:29)
[2019-01-04] MEDS: hydrALAZINE 25 MG Tablet PO SCH ×2 (11:13→22:20)
--- NOTE | 2019-01-04 11:57 | XR ---
EXAM DATE: 01/04/2019 11:49 AM EST AGE/SEX: 83 years / Male INDICATIONS: . Pneumonia. Cough. CLINICAL DATA: This is the patient's initial encounter. Patient reports that signs and symptoms have been present for 2 days and indicates a pain score of 0/10. MEDICAL/SURGICAL HISTORY: . Congestive heart failure. Chronic obstructive pulmonary disease. Hy percholesterolemia. . Pacemaker. CABG. Mitral valve replacement. COMPARISON: [facility] [place], CHEST 1V SINGLE AP, 01/03/2019. . FINDINGS: PA and lateral views of the chest demonstrate minimal density in the right middle lobe. Increase in p ulmonary vascularity. Slight interstitial prominence. Heart borderline enlarged. Status post CABG. Le ft-sided pacemaker/defibrillator unchanged. The cardiomediastinal contours are unremarkable. Osseous structures are intact. CONCLUSION: Minimal density in the right middle lobe with slight interstitial prominence but improved from previo us study. Electronically signed by: Travon Prather MD Board Certified Radiologist 01/04/2019 11:56 AM EST
--- NOTE | 2019-01-04 12:51 | P.PNFP ---
Subjective Interval history: Patient was seen and examined this morning. He noted that he had a nosebleed last night lasting 10 minutes but otherwise feels a little better. He denies fevers, chills, nausea, vomiting, chest pain. He did have an episode of shortness of breath after receiving 1 unit of PRBCs last night but responded well to 1mg IV Bumex. Wants to have a plan for if he continues to have nosebleeds at home. <Edgar Dela CruzLashell L - 01/04/19 13:44> Results - Labs Result diagrams: 01/05/19 08:46 01/04/19 06:02 <Cayla Moreno - 01/05/19 09:40> Abnormal lab results 01/04/19 01/05/19 01/05/19 Range/Units 18:25 08:46 08:46 Hgb 9.6 L 10.2 L (13.0-17.0) gm/dL Hct 28.4 L 29.0 L (39.0-51.0) % PT 20.1 H (9.8-11.6) sec Short CBC 01/04/19 01/05/19 Range/Units 18:25 08:46 Hgb 9.6 L 10.2 L (13.0-17.0) gm/dL Hct 28.4 L 29.0 L (39.0-51.0) % <Cayla Moreno - 01/05/19 09:40> Abnormal lab results 01/03/19 01/03/19 01/03/19 Range/Units 12:30 12:30 12:30 RBC 2.82 L (4.50-5.90) mil/mm3 Hgb 9.5 L (13.0-17.0) gm/dL Hct 28.0 L (39.0-51.0) % Plt Count 129 L (150-450) th/mm3 Neut % (Auto) 70.6 H (16.0-70.0) % [place] % (Auto) (0.0-8.0) % Lymph # (Auto) 0.9 L (1.0-4.8) th/mm3 PT 21.8 H (9.8-11.6) sec APTT 33.1 H (23.4-31.7) sec Chloride 108 H (98-107) meq/L BUN 26 H (7-18) mg/dL Creatinine 1.61 H (0.60-1.30) mg/dL Estimated GFR 41 L (>89) mL/min Random Glucose 167 H (74-106) mg/dL Calcium 8.3 L (8.5-10.1) mg/dL Total Bilirubin (0.2-1.0) mg/dL Alkaline Phosphatase (45-117) U/L B-Natriuretic Peptide (0-100) pg/mL Total Protein (6.4-8.2) g/dL Urine Clarity (Clear) Urine Occult Blood (Negative) Urine RBC (0-3) /hpf Antibody Screen MTS Gel Crossmatch 01/03/19 01/03/19 01/03/19 Range/Units 12:30 12:30 14:15 RBC (4.50-5.90) mil/mm3 Hgb (13.0-17.0) gm/dL Hct (39.0-51.0) % Plt Count (150-450) th/mm3 Neut % (Auto) (16.0-70.0) % [place] % (Auto) (0.0-8.0) % Lymph # (Auto) (1.0-4.8) th/mm3 PT (9.8-11.6) sec APTT (23.4-31.7) sec Chloride (98-107) meq/L BUN (7-18) mg/dL Creatinine (0.60-1.30) mg/dL Estimated GFR (>89) mL/min Random Glucose (74-106) mg/dL Calcium (8.5-10.1) mg/dL Total Bilirubin (0.2-1.0) mg/dL Alkaline Phosphatase (45-117) U/L B-Natriuretic Peptide 227 H (0-100) pg/mL Total Protein (6.4-8.2) g/dL Urine Clarity Hazy H (Clear) Urine Occult Blood Moderate H (Negative) Urine RBC 61 H (0-3) /hpf Antibody Screen Positive H MTS Gel Crossmatch See Detail 01/03/19 01/03/19 01/03/19 Range/Units 18:35 22:26 23:20 RBC (4.50-5.90) mil/mm3 Hgb 8.7 L 8.2 L (13.0-17.0) gm/dL Hct 24.8 L 23.5 L (39.0-51.0) % Plt Count (150-450) th/mm3 Neut % (Auto) (16.0-70.0) % [place] % (Auto) (0.0-8.0) % Lymph # (Auto) (1.0-4.8) th/mm3 PT (9.8-11.6) sec APTT (23.4-31.7) sec Chloride (98-107) meq/L BUN (7-18) mg/dL Creatinine (0.60-1.30) mg/dL Estimated GFR (>89) mL/min Random Glucose (74-106) mg/dL Calcium (8.5-10.1) mg/dL Total Bilirubin (0.2-1.0) mg/dL Alkaline Phosphatase (45-117) U/L B-Natriuretic Peptide (0-100) pg/mL Total Protein (6.4-8.2) g/dL Urine Clarity (Clear) Urine Occult Blood (Negative) Urine RBC (0-3) /hpf Antibody Screen MTS Gel Crossmatch See Detail 01/04/19 01/04/19 01/04/19 Range/Units 06:02 06:28 06:28 RBC 3.23 L (4.50-5.90) mil/mm3 Hgb 10.7 L D (13.0-17.0) gm/dL Hct 31.1 L (39.0-51.0) % Plt Count 124 L (150-450) th/mm3 Neut % (Auto) 77.4 H (16.0-70.0) % [place] % (Auto) 10.2 H (0.0-8.0) % Lymph # (Auto) 0.8 L (1.0-4.8) th/mm3 PT 19.4 H (9.8-11.6) sec APTT (23.4-31.7) sec Chloride (98-107) meq/L BUN 32 H (7-18) mg/dL Creatinine 1.72 H (0.60-1.30) mg/dL Estimated GFR 38 L (>89) mL/min Random Glucose 110 H (74-106) mg/dL Calcium (8.5-10.1) mg/dL Total Bilirubin 4.1 H (0.2-1.0) mg/dL Alkaline Phosphatase 118 H (45-117) U/L B-Natriuretic Peptide (0-100) pg/mL Total Protein 8.4 H (6.4-8.2) g/dL Urine Clarity (Clear) Urine Occult Blood (Negative) Urine RBC (0-3) /hpf Antibody Screen MTS Gel Crossmatch 01/04/19 Range/Units 06:28 RBC (4.50-5.90) mil/mm3 Hgb (13.0-17.0) gm/dL Hct (39.0-51.0) % Plt Count (150-450) th/mm3 Neut % (Auto) (16.0-70.0) % [place] % (Auto) (0.0-8.0) % Lymph # (Auto) (1.0-4.8) th/mm3 PT (9.8-11.6) sec APTT (23.4-31.7) sec Chloride (98-107) meq/L BUN (7-18) mg/dL Creatinine (0.60-1.30) mg/dL Estimated GFR (>89) mL/min Random Glucose (74-106) mg/dL Calcium (8.5-10.1) mg/dL Total Bilirubin (0.2-1.0) mg/dL Alkaline Phosphatase (45-117) U/L B-Natriuretic Peptide 350 H (0-100) pg/mL Total Protein (6.4-8.2) g/dL Urine Clarity (Clear) Urine Occult Blood (Negative) Urine RBC (0-3) /hpf Antibody Screen MTS Gel Crossmatch Short CBC 01/03/19 01/03/19 01/03/19 Range/Units 12:30 18:35 22:26 WBC 5.0 (4.0-11.0) th/mm3 Hgb 9.5 L 8.7 L 8.2 L (13.0-17.0) gm/dL Hct 28.0 L 24.8 L 23.5 L (39.0-51.0) % Plt Count 129 L (150-450) th/mm3 01/04/19 Range/Units 06:28 WBC 7.5 (4.0-11.0) th/mm3 Hgb 10.7 L D (13.0-17.0) gm/dL Hct 31.1 L (39.0-51.0) % Plt Count 124 L (150-450) th/mm3 BMP 01/03/19 01/04/19 12:30 06:02 Sodium 138 139 Potassium 4.3 4.3 Chloride 108 H 107 Carbon Dioxide 24.9 22.3 BUN 26 H 32 H Creatinine 1.61 H 1.72 H Calcium 8.3 L 8.7 Cardiac Enzymes 01/03/19 01/03/19 01/03/19 Range/Units 12:30 18:37 23:52 Troponin I 0.04 0.05 0.04 (0.02-0.05) ng/mL Liver Function 01/04/19 Range/Units 06:02 Total Bilirubin 4.1 H (0.2-1.0) mg/dL AST 15 (15-37) U/L ALT 14 (12-78) U/L Alkaline Phosphatase 118 H (45-117) U/L Albumin 3.4 (3.4-5.0) g/dL Urine 01/03/19 Range/Units 14:15 Urine Color Yellow (Yellw/Straw) Urine Clarity Hazy H (Clear) Urine pH 5.0 (5.0-8.5) Ur Specific [place] 1.015 (1.002-1.035) Urine Protein Negative (Neg-Trace) mg/dL Urine Glucose (UA) Negative (Negative) mg/dL <Lashell Ocampo - 01/04/19 12:51> - Imaging Impressions Chest X-Ray 01/04/19 00:00 CONCLUSION: Minimal density in the right middle lobe with slight interstitial prominence but improved from previous study. <Cayla Moreno - 01/05/19 09:40> Impressions Chest X-Ray 01/03/19 12:33 CONCLUSION: Mild patchy infiltrate in the right middle lobe. Pulmonary venous congestion. Chest X-Ray 01/04/19 00:00 CONCLUSION: Minimal density in the right middle lobe with slight interstitial prominence but improved from previous study. <Lashell Ocampo - 01/04/19 12:51> Physical Exam Vital signs: Vital Signs 01/04/19 11:30 01/04/19 12:00 01/04/19 17:42 Temperature 98.2 F 98.2 F Pulse Rate 80 80 80 Respiratory Rate 17 16 Blood Pressure 116/56 L 118/56 L Pulse Oximetry 95 95 01/04/19 19:41 01/04/19 19:58 01/04/19 20:00 Temperature 97.9 F Pulse Rate 80 80 Respiratory Rate 16 Blood Pressure 133/61 Pulse Oximetry 95 96 01/05/19 00:00 01/05/19 03:55 01/05/19 04:00 Temperature 97.7 F 98.2 F Pulse Rate 80 80 81 Respiratory Rate 16 16 Blood Pressure 157/74 H 130/59 L Pulse Oximetry 94 L 92 L 01/05/19 07:20 Temperature 97.9 F Pulse Rate 80 Respiratory Rate 20 Blood Pressure 122/58 L Pulse Oximetry 98 Intake & Output 01/04/19 01/05/19 01/05/19 18:59 06:59 18:59 Intake Total 600 / 600 Output Total 895 / 895 Balance -295 / -295 Intake: Oral 600 / 600 Output: Urine 895 / 895 Other: Date of Last Bowel Movement 01/04/19 01/04/19 <Cayla Moreno - 01/05/19 09:40> Vital Signs 01/03/19 13:00 01/03/19 16:06 01/03/19 16:30 Temperature 97.4 F L 98.1 F 98.1 F Pulse Rate 80 79 79 Respiratory Rate 18 16 16 Blood Pressure 126/58 L 108/58 L 108/56 L Pulse Oximetry 97 98 Pulse Oximetry [Exertion on Room Air] Pulse Oximetry [Resting on Room Air] 01/03/19 20:00 01/04/19 00:00 01/04/19 00:05 Temperature 98 F 97.9 F Pulse Rate 81 80 82 Respiratory Rate 16 16 Blood Pressure 117/57 L 138/64 Pulse Oximetry 94 L 98 Pulse Oximetry [Exertion on Room Air] Pulse Oximetry [Resting on Room Air] 01/04/19 00:48 01/04/19 01:08 01/04/19 03:20 Temperature 98.0 F 98.1 F 98.5 F Pulse Rate 78 80 80 Respiratory Rate 18 18 20 Blood Pressure 139/67 144/69 H 151/65 H Pulse Oximetry 97 96 94 L Pulse Oximetry [Exertion on Room Air] Pulse Oximetry [Resting on Room Air] 01/04/19 03:55 01/04/19 04:00 01/04/19 04:48 Temperature 98.1 F 98.7 F Pulse Rate 80 80 87 Respiratory Rate 16 20 Blood Pressure 166/77 H 173/72 H Pulse Oximetry 96 93 L Pulse Oximetry [Exertion on Room Air] Pulse Oximetry [Resting on Room Air] 01/04/19 07:32 01/04/19 07:40 Temperature 98.9 F Pulse Rate 70 Respiratory Rate 18 Blood Pressure 153/65 H Pulse Oximetry 92 L Pulse Oximetry [Exertion on Room Air] 92 L Pulse Oximetry [Resting on Room Air] 95 Intake & Output 01/03/19 01/04/19 01/04/19 18:59 06:59 18:59 Intake Total 350 / 350 400 / 400 Output Total 525 / 525 Balance 350 / 350 -125 / -125 Weight 74.843 kg Intake: IV 350 / 350 Azithromycin Inj 500 MG In NS 250 / 250 Inj 250 ML @ 250 mls/hr IV.SIG ONCE ONE Rx#:[id number] Rocephin Inj 1,000 MG In NS Inj 100 / 100 100 ML @ 200 mls/hr IV.SIG ONCE ONE Rx#:[id number] Intake (Blood Product) Amt 400 / 400 Rbc As-3 Leukoreduced Unit 400 / 400 [id number] Output: Urine 525 / 525 Other: # Voids 2 Date of Last Bowel Movement 01/03/19 Weight On Admission 74.843 kg <Lashell Ocampo L - 01/04/19 12:51> Narrative: GENERAL: well appearing elderly male in no apparent distress. SKIN: Warm and dry. There is dried blood on the right cheek. HEAD: Atraumatic. Normocephalic. EYES: Pupils equal and round. No scleral icterus. No injection or drainage. ENT: No nasal bleeding or discharge. Mucous membranes pink and moist. NECK: Trachea midline. No JVD. CARDIOVASCULAR: Regular rate and rhythm. No murmurs, gallops, or rubs. RESPIRATORY: No accessory muscle use. Clear to auscultation. Breath sounds equal bilaterally. GASTROINTESTINAL: Abdomen soft, non-tender, nondistended. Hepatic and splenic margins not palpable. MUSCULOSKELETAL: Extremities without significant edema. No cyanosis. No obvious deformities. NEUROLOGICAL: Awake and alert. No obvious cranial nerve deficits. Motor and strength in the arms and legs. Normal speech. PSYCHIATRIC: Appropriate mood and affect; insight and judgment normal. <Lashell Ocampo - 01/04/19 13:44> Assessment and Plan - Assessment (1) Anemia Code(s): D64.9 - Anemia, unspecified Status: Acute (2) Community acquired pneumonia Code(s): J18.9 - Pneumonia, unspecified organism Status: Acute (3) CHF (congestive heart failure) Code(s): I50.9 - Heart failure, unspecified Status: Acute (4) H/O mitral valve replacement with mechanical valve Code(s): Z95.2 - Presence of prosthetic heart valve Status: Acute (5) Subtherapeutic international normalized ratio (INR) Code(s): R79.1 - Abnormal coagulation profile Status: Acute (6) COPD (chronic obstructive pulmonary disease) Code(s): J44.9 - Chronic obstructive pulmonary disease, unspecified Status: Chronic (7) Nutrition, metabolism, and development symptoms Code(s): R63.8 - Other symptoms and signs concerning food and fluid intake Status: Acute <TracimónicaCayla - 01/05/19 09:40> (1) Anemia Code(s): D64.9 - Anemia, unspecified Status: Acute Plan: Patient is a 83-year-old male with significant past medical history of mechanical mitral valve on warfarin, triple bypass, pacemaker placement, GI bleed, and COPD who presented to the ED 01/03 at a physician's request due to borderline hemoglobin of 8. Patient has had progressive sxs of malaise and dyspnea on minimal exertion associated with prior h/o of severe bleeds (most recent at the beginning of 2017). Plan initially was to give patient 2 units of PRBCs. He is status post 1 unit leuko-reduced PRBC after which she did have some increased shortness of breath overnight. He did receive 1mg IV Bumex and felt better after this. Hemoglobin admission was 9.5 with trending showing hemoglobin of 8.7, 8.2 and then post transfusion 10.7. His MCV is normal with only mild reduction in platelet count. His INR on admission was 2.2 but patient is on warfarin as noted elsewhere. Patient does have a history of nosebleeds and had a 10-minute episode overnight. He worries that if he goes home and continues to have nosebleeds that his blood counts will continue to decrease. He was heard to hematology outpatient but has not yet seen the specialist. Plan: Continue to monitor hemoglobin every 12 hours Transfuse if Hgb less than 8 Hematology consult ordered today (2) Community acquired pneumonia Code(s): J18.9 - Pneumonia, unspecified organism Status: Acute Plan: In the ED patient found to have CXR showing mild patchy infiltrate in the right middle lobe. Pulmonary venous congestion. Patient received 1 dose of azithromycin and Rocephin in the ED. VS WNL no leukocytosis Continue to monitor vital signs Titrate oxygen as needed to keep O2 sats greater than 92% We will discontinue azithromycin and Rocephin as there is no evidence of community acquired pneumonia based on normal pro calcitonin level and symptomatic improvement overall Consider starting antibiotics if patient develops fever Blood cultures no growth to date Follow-up: A.m. labs Blood cultures (3) CHF (congestive heart failure) Code(s): I50.9 - Heart failure, unspecified Status: Acute Plan: Patient history of CHF with complaint of worsening dyspnea on minimal exertion. Admitted for management of CHF exacerbation. Patient's vital signs within normal limits Comfortable while at rest. BNP 227 then 350 Patient is allergic to Lasix however has tolerated Bumex well for diuresis Bumex 1 mg IV daily for now. Home dose 1.mg PO daily held. placed on telemetry Serial troponins and EKG not suggestive of cardiac insult or ischemia Strict I's and O's Cardiac diet Continue Imdur 30 mg daily, hydralazine 25mg BID, carvedilol 6.25mg daily, digoxin 125mg daily. Continue home dose atorvastatin 10mg hs. Continue Ranexa 500mg TID. (4) H/O mitral valve replacement with mechanical valve Code(s): Z95.2 - Presence of prosthetic heart valve Status: Acute Plan: Patient with history of mechanical mitral valve on warfarin. INR goal for this type of valve is 2.53.5. INR subtherapeutic at 2.2 on admission and 1.9 on 01/04 Home dosages of warfarin initially held, however antibiotics were discontinued on 01/04 given no discrete evidence of pneumonia on hold due to possible elevation of INR while patient is on antibiotics. Patient given one-time dose of warfarin 3 mg on 01/03/19. Will give 5mg warfarin today 01/04/19. Will tentatively continue warfarin 2.5mg daily after this. Daily INRs. (5) Subtherapeutic international normalized ratio (INR) Code(s): R79.1 - Abnormal coagulation profile Status: Acute Plan: See above plan (6) COPD (chronic obstructive pulmonary disease) Code(s): J44.9 - Chronic obstructive pulmonary disease, unspecified Status: Chronic Plan: Patient with chronic history of COPD Continue with Anoro-Ellipta at home dose Continue with Albuterol nebs PRN q4hr (7) Nutrition, metabolism, and development symptoms Code(s): R63.8 - Other symptoms and signs concerning food and fluid intake Status: Acute Plan: Fluids: Not indicated at this time Electrolytes: Replete as needed Diet cardiac diet, low sodium and fluid restriction DVT prophylaxis: Patient on warfarin therapy <Lashell Ocampo - 01/04/19 13:18> - Assessment and Plan Discussed Condition With: Seen and discussed with Drs. Bro and Josh <Lashell Ocampo - 01/04/19 13:44> Discharge Planning: Anticipate a discharge to home in 2-3 days pending further workup and management with cardiology, hematology, and GI. Passed Home O2 walk test on 01/04/19 <Lashell Ocampo - 01/04/19 13:44> - Attending Attestation Patient seen and examined the morning of 01/04/2019, discussed with resident team. I agree with assessment and management as documented and discussed with me. Pt reports a nosebleed overnight, which stopped with application of ice bag. Await recs from hem and GI. <Cayla Moreno - 01/05/19 09:40>
[2019-01-04 13:15] LABS: Reticulocyte Percent 1.7 % (0.4-3.0)
[2019-01-04] MEDS ORDERED: Azithromycin Inj 500 MG in Sodium Chlor 0.9% Inj 250 ML IV.SIG ONE (16:00)
[2019-01-04] MEDS: Ranolazine 500 MG 12HR ER Tablet PO SCH (17:52)
[2019-01-04] MEDS: Finasteride 5 MG Tablet PO SCH (17:54)
[2019-01-04] MEDS: Umeclindinium 62.5 MCG/Vilanterol 25 MCG Inhaler INH SCH (17:58)
--- NOTE | 2019-01-04 18:14 | P.CONGI ---
History of Present Illness Consult date: 01/04/19 Consult reason: Extensive cardiac history with worsening dyspnea on exertion and downtrending H& H history of prior GI bleed Chief complaint: Acute CHF Exacerbation, Pneumonia, Weakness History of Present Illness: Patient is a very pleasant 83-year-old male with significant medical history of CHF atrial fibrillation COPD hypercholesterolemia and surgical history of cardiac stent mitral valve replacement status post CABG. patient is on Coumadin for A. fib and the MVR at home and manage by his drone software development engineer Dr. Machado. Approximately 2 weeks ago patient started having shortness of breathing and dyspnea on exertion. Denies syncopal episode. Patient admits to having black tarry stool during the last 2 weeks not associated with nausea vomiting and no abdominal pain. Patient presented to emergency room when his dyspnea is became severe. Last night patient has an episode of severe epistaxis but was otherwise controlled. Patient received 1 unit of cryo packed red blood cells with IV Bumex to prevent him from going into heart failure. Our service is consulted for extensive cardiac history and downtrending H&H and history of GI bleed. <Damaso Castanon - Last Filed: 01/04/19 17:58> Review of Systems All other systems reviewed negative except as stated in HPI <Damaso Castanon - Last Filed: 01/04/19 17:58> PMFSH - History History Provided By: Patient - Medical History Medical History: Medical History (Last Reviewed 01/04/19 @ 09:00 by Mary Kate Chahal) CHF (congestive heart failure) COPD (chronic obstructive pulmonary disease) High cholesterol Pacemaker - Surgical History Surgical History: Surgical History (Last Reviewed 01/04/19 @ 09:00 by Mary Kate Chahal) H/O heart artery stent H/O mitral valve replacement S/P CABG x 3 - Tobacco History Second Hand Smoke Exposure: No Tobacco Use In Past 30 Days: No Smoking Status: Former smoker Tobacco Type: Cigarettes - Alcohol History How Often Do You Have a Drink Containing Alcohol: Never - Substance Use History Substance History: No History of Abuse - Travel History Recent Travel in the [facility] Within the Last 8 Weeks: No Recent Travel Out of the Country Within the Last 8 Weeks: No - Immunization History Tetanus Immunization: Unsure <Damaso Castanon - Last Filed: 01/04/19 17:58> - Medical History Medical History: Medical History (Last Reviewed 01/04/19 @ 09:00 by Mary Kate Chahal) CHF (congestive heart failure) COPD (chronic obstructive pulmonary disease) High cholesterol Pacemaker - Surgical History Surgical History: Surgical History (Last Reviewed 01/04/19 @ 09:00 by Mary Kate Chahal) H/O heart artery stent H/O mitral valve replacement S/P CABG x 3 <Sue Mcnulty - Last Filed: 01/04/19 18:53> Medications and Allergies Active Medications: Active Medications Acetaminophen (Tylenol) 650 mg PO Q4H PRN PRN Reason: Temp > 100.4 Al Hydroxide/Mg Hydroxide (Milk Of Magnesia Liq) 30 ml PO Q12H PRN PRN Reason: Mild Constipation Albuterol (Albuterol Neb (Prn)) 2.5 mg NEB Q4HR NEB PRN PRN Reason: SHORTNESS OF BREATH Atorvastatin Calcium (Lipitor) 10 mg PO QPM [facility] Last Admin: 01/04/19 17:54 Dose: 10 mg Bisacodyl (Dulcolax Supp) 10 mg RECTAL DAILY PRN PRN Reason: SEVERE CONSITIPATION Bumetanide (Bumex Inj) 1 mg IV.PUSH DAILY [facility] Last Admin: 01/04/19 11:13 Dose: 1 mg Carvedilol (Coreg) 6.25 mg PO DAILY [facility] Last Admin: 01/04/19 10:29 Dose: 6.25 mg Digoxin (Lanoxin) 125 mcg PO DAILY [facility] Last Admin: 01/04/19 10:28 Dose: 125 mcg Finasteride (Proscar) 5 mg PO QPM [facility] Last Admin: 01/04/19 17:54 Dose: 5 mg Hydralazine HCl (Apresoline) 25 mg PO BID [facility] Last Admin: 01/04/19 11:13 Dose: 25 mg Isosorbide Mononitrate (Imdur) 30 mg PO DAILY [facility] Last Admin: 01/04/19 10:29 Dose: 30 mg Lactulose (Lactulose Liq) 30 ml PO DAILY PRN PRN Reason: SEVERE CONSITIPATION Ondansetron HCl (Zofran Inj) 4 mg IV.PUSH Q6H PRN PRN Reason: NAUSEA OR VOMITING Ranolazine (Ranexa) 500 mg PO TID [facility] Last Admin: 01/04/19 17:52 Dose: 500 mg Senna/Docusate Sodium (Kia-Colace) 1 tab PO BID [facility] Last Admin: 01/04/19 10:27 Dose: 1 tab Sennosides (Senokot) 17.2 mg PO Q12H PRN PRN Reason: Moderate Constipation Sodium Chloride (Ns Flush) 2 ml IV.FLUSH BID [facility] Last Admin: 01/04/19 11:13 Dose: 2 ml Sodium Chloride (Ns Flush) 2 ml IV.FLUSH PRN PRN PRN Reason: FLUSH AFTER USING IV ACCESS Tamsulosin HCl (Flomax) 0.4 mg PO BID [facility] Last Admin: 01/04/19 10:27 Dose: 0.4 mg Umeclidinium/Vilanterol (Anoro-Ellipta 62.5/25 Mcg Inh) 1 inhalation INH Q24H [facility] Last Admin: 01/03/19 17:25 Dose: 1 inhalation <Damaso Castanon - Last Filed: 01/04/19 17:58> Active Medications: Active Medications Acetaminophen (Tylenol) 650 mg PO Q4H PRN PRN Reason: Temp > 100.4 Al Hydroxide/Mg Hydroxide (Milk Of Magnyina Liq) 30 ml PO Q12H PRN PRN Reason: Mild Constipation Albuterol (Albuterol Neb (Prn)) 2.5 mg NEB Q4HR NEB PRN PRN Reason: SHORTNESS OF BREATH Atorvastatin Calcium (Lipitor) 10 mg PO QPM [facility] Last Admin: 01/04/19 17:54 Dose: 10 mg Bisacodyl (Dulcolax Supp) 10 mg RECTAL DAILY PRN PRN Reason: SEVERE CONSITIPATION Bumetanide (Bumex Inj) 1 mg IV.PUSH DAILY [facility] Last Admin: 01/04/19 11:13 Dose: 1 mg Carvedilol (Coreg) 6.25 mg PO DAILY [facility] Last Admin: 01/04/19 10:29 Dose: 6.25 mg Digoxin (Lanoxin) 125 mcg PO DAILY [facility] Last Admin: 01/04/19 10:28 Dose: 125 mcg Finasteride (Proscar) 5 mg PO QPM [facility] Last Admin: 01/04/19 17:54 Dose: 5 mg Hydralazine HCl (Apresoline) 25 mg PO BID [facility] Last Admin: 01/04/19 11:13 Dose: 25 mg Isosorbide Mononitrate (Imdur) 30 mg PO DAILY [facility] Last Admin: 01/04/19 10:29 Dose: 30 mg Lactulose (Lactulose Liq) 30 ml PO DAILY PRN PRN Reason: SEVERE CONSITIPATION Ondansetron HCl (Zofran Inj) 4 mg IV.PUSH Q6H PRN PRN Reason: NAUSEA OR VOMITING Ranolazine (Ranexa) 500 mg PO TID [facility] Last Admin: 01/04/19 17:52 Dose: 500 mg Senna/Docusate Sodium (Kia-Colace) 1 tab PO BID [facility] Last Admin: 01/04/19 10:27 Dose: 1 tab Sennosides (Senokot) 17.2 mg PO Q12H PRN PRN Reason: Moderate Constipation Sodium Chloride (Ns Flush) 2 ml IV.FLUSH BID [facility] Last Admin: 01/04/19 11:13 Dose: 2 ml Sodium Chloride (Ns Flush) 2 ml IV.FLUSH PRN PRN PRN Reason: FLUSH AFTER USING IV ACCESS Tamsulosin HCl (Flomax) 0.4 mg PO BID [facility] Last Admin: 01/04/19 10:27 Dose: 0.4 mg Umeclidinium/Vilanterol (Anoro-Ellipta 62.5/25 Mcg Inh) 1 inhalation INH Q24H [facility] Last Admin: 01/04/19 17:58 Dose: 1 inhalation <Sue Mcnulty - Last Filed: 01/04/19 18:53> Allergies Allergy/AdvReac Type Severity Reaction Status Date / Time lisinopril Allergy Severe COUGH Verified 01/03/19 13:02 chlorpheniramine Allergy Mild PASSED OUT Verified 01/03/19 13:02 hydrocodone Allergy Mild PASSED OUT Verified 01/03/19 13:02 furosemide Allergy Unknown Rash Verified 01/03/19 13:02 Home Medications Medication Instructions Recorded Confirmed Type albuterol sulfate 2 puff INHALATION Q4H PRN 01/03/19 01/03/19 History aspirin 81 mg PO DAILY 01/03/19 01/03/19 History atorvastatin 10 mg PO QPM 01/03/19 01/03/19 History bumetanide 2 mg PO DAILY PRN 01/03/19 01/03/19 History carvedilol 6.25 mg PO DAILY 01/03/19 01/03/19 History digoxin 0.125 mg PO DAILY 01/03/19 01/03/19 History finasteride 5 mg PO QPM 01/03/19 01/03/19 History hydralazine 25 mg PO BID 01/03/19 01/03/19 History isosorbide mononitrate 30 mg PO DAILY 01/03/19 01/03/19 History nitroglycerin 0.4 mg SUBLINGUAL Q5M PRN 01/03/19 01/03/19 History potassium chloride 20 meq PO WEEKLY 01/03/19 01/03/19 History ranolazine 500 mg PO BID 01/03/19 01/03/19 History sucralfate 1 g PO TID 01/03/19 01/03/19 History tamsulosin 0.4 mg PO BID 01/03/19 01/03/19 History umeclidinium-vilanterol [Anoro 1 inh INHALATION Q24H 01/03/19 01/03/19 History Ellipta] warfarin 2.5 mg PO DIRECTED 01/03/19 01/03/19 History warfarin 5 mg PO QWEEK 01/03/19 01/03/19 History Ranexa 500 mg PO TID 01/04/19 01/04/19 History Exam Vital signs: Vital Signs 01/03/19 20:00 01/04/19 00:00 01/04/19 00:05 Temperature 98 F 97.9 F Pulse Rate 81 80 82 Respiratory Rate 16 16 Blood Pressure 117/57 L 138/64 Pulse Oximetry 94 L 98 Pulse Oximetry [Exertion on Room Air] Pulse Oximetry [Resting on Room Air] 01/04/19 00:48 01/04/19 01:08 01/04/19 03:20 Temperature 98.0 F 98.1 F 98.5 F Pulse Rate 78 80 80 Respiratory Rate 18 18 20 Blood Pressure 139/67 144/69 H 151/65 H Pulse Oximetry 97 96 94 L Pulse Oximetry [Exertion on Room Air] Pulse Oximetry [Resting on Room Air] 01/04/19 03:55 01/04/19 04:00 01/04/19 04:48 Temperature 98.1 F 98.7 F Pulse Rate 80 80 87 Respiratory Rate 16 20 Blood Pressure 166/77 H 173/72 H Pulse Oximetry 96 93 L Pulse Oximetry [Exertion on Room Air] Pulse Oximetry [Resting on Room Air] 01/04/19 07:00 01/04/19 07:32 01/04/19 07:40 Temperature 98.9 F Pulse Rate 84 70 Respiratory Rate 18 Blood Pressure 153/65 H Pulse Oximetry 92 L Pulse Oximetry [Exertion on Room Air] 92 L Pulse Oximetry [Resting on Room Air] 95 01/04/19 11:30 01/04/19 12:00 01/04/19 17:42 Temperature 98.2 F 98.2 F Pulse Rate 80 80 80 Respiratory Rate 17 16 Blood Pressure 116/56 L 118/56 L Pulse Oximetry 95 95 Pulse Oximetry [Exertion on Room Air] Pulse Oximetry [Resting on Room Air] Intake & Output 01/03/19 01/04/19 01/04/19 18:59 06:59 18:59 Intake Total 350 / 350 400 / 400 Output Total 525 / 525 Balance 350 / 350 -125 / -125 Weight 74.843 kg Intake: IV 350 / 350 Azithromycin Inj 500 MG In NS 250 / 250 Inj 250 ML @ 250 mls/hr IV.SIG ONCE ONE Rx#:[id number] Rocephin Inj 1,000 MG In NS Inj 100 / 100 100 ML @ 200 mls/hr IV.SIG ONCE ONE Rx#:[id number] Intake (Blood Product) Amt 400 / 400 Rbc As-3 Leukoreduced Unit 400 / 400 [id number] Output: Urine 525 / 525 Other: # Voids 2 Date of Last Bowel Movement 01/03/19 01/04/19 Weight On Admission 74.843 kg - Constitutional no acute distress - Routine HEENT Exam Head: Present: normocephalic, atraumatic - Routine Neck Exam Present: supple - Routine Respiratory Exam Present: CTA bilaterally - Routine Cardiovascular Exam Present: RRR, S1, S2 - Routine Abdominal Exam Present: soft, normoactive bowel sounds. Absent: tenderness, distended - Routine Extremities Exam Present: pulses intact, normal capillary refill - Routine Skin Exam Present: intact - Routine Neurological Exam Present: alert, oriented X3 <Abdurahman,Arsheema - Last Filed: 01/04/19 17:58> Vital signs: Vital Signs 01/03/19 20:00 01/04/19 00:00 01/04/19 00:05 Temperature 98 F 97.9 F Pulse Rate 81 80 82 Respiratory Rate 16 16 Blood Pressure 117/57 L 138/64 Pulse Oximetry 94 L 98 Pulse Oximetry [Exertion on Room Air] Pulse Oximetry [Resting on Room Air] 01/04/19 00:48 01/04/19 01:08 01/04/19 03:20 Temperature 98.0 F 98.1 F 98.5 F Pulse Rate 78 80 80 Respiratory Rate 18 18 20 Blood Pressure 139/67 144/69 H 151/65 H Pulse Oximetry 97 96 94 L Pulse Oximetry [Exertion on Room Air] Pulse Oximetry [Resting on Room Air] 01/04/19 03:55 01/04/19 04:00 01/04/19 04:48 Temperature 98.1 F 98.7 F Pulse Rate 80 80 87 Respiratory Rate 16 20 Blood Pressure 166/77 H 173/72 H Pulse Oximetry 96 93 L Pulse Oximetry [Exertion on Room Air] Pulse Oximetry [Resting on Room Air] 01/04/19 07:00 01/04/19 07:32 01/04/19 07:40 Temperature 98.9 F Pulse Rate 84 70 Respiratory Rate 18 Blood Pressure 153/65 H Pulse Oximetry 92 L Pulse Oximetry [Exertion on Room Air] 92 L Pulse Oximetry [Resting on Room Air] 95 01/04/19 11:30 01/04/19 12:00 01/04/19 17:42 Temperature 98.2 F 98.2 F Pulse Rate 80 80 80 Respiratory Rate 17 16 Blood Pressure 116/56 L 118/56 L Pulse Oximetry 95 95 Pulse Oximetry [Exertion on Room Air] Pulse Oximetry [Resting on Room Air] Intake & Output 01/03/19 01/04/19 01/04/19 18:59 06:59 18:59 Intake Total 350 / 350 400 / 400 Output Total 525 / 525 Balance 350 / 350 -125 / -125 Weight 74.843 kg Intake: IV 350 / 350 Azithromycin Inj 500 MG In NS 250 / 250 Inj 250 ML @ 250 mls/hr IV.SIG ONCE ONE Rx#:[id number] Rocephin Inj 1,000 MG In NS Inj 100 / 100 100 ML @ 200 mls/hr IV.SIG ONCE ONE Rx#:[id number] Intake (Blood Product) Amt 400 / 400 Rbc As-3 Leukoreduced Unit 400 / 400 [id number] Output: Urine 525 / 525 Other: # Voids 2 Date of Last Bowel Movement 01/03/19 01/04/19 Weight On Admission 74.843 kg <Sue Mcnulty - Last Filed: 01/04/19 18:53> Results - Labs CBC & Chem 7: 01/04/19 06:28 01/04/19 06:02 Labs: Laboratory Results - last 24 hr 01/03/19 01/03/19 01/03/19 12:30 12:30 18:35 WBC RBC Hgb 8.7 L Hct 24.8 L MCV MCH MCHC RDW Plt Count MPV Neut % (Auto) Lymph % (Auto) [place] % (Auto) Eos % (Auto) Baso % (Auto) Neut # (Auto) Lymph # (Auto) [place] # (Auto) Eos # (Auto) Baso # (Auto) WBC Differential Differential Comment Retic Count Absolute Retic PT INR Sodium Potassium Chloride Carbon Dioxide Anion Gap BUN Creatinine Estimated GFR Random Glucose Calcium Total Bilirubin AST ALT Alkaline Phosphatase Troponin I B-Natriuretic Peptide Total Protein Albumin Procalcitonin 0.06 Blood Type O Positive Blood Type Recheck Required Antibody Screen Positive H Antigen Identification Jka Antigen - NEGATIVE MTS Gel Crossmatch See Detail Bld Prod Order Comment 01/03/19 01/03/19 01/03/19 18:37 22:26 23:20 WBC RBC Hgb 8.2 L Hct 23.5 L MCV MCH MCHC RDW Plt Count MPV Neut % (Auto) Lymph % (Auto) [place] % (Auto) Eos % (Auto) Baso % (Auto) Neut # (Auto) Lymph # (Auto) [place] # (Auto) Eos # (Auto) Baso # (Auto) WBC Differential Differential Comment Retic Count Absolute Retic PT INR Sodium Potassium Chloride Carbon Dioxide Anion Gap BUN Creatinine Estimated GFR Random Glucose Calcium Total Bilirubin AST ALT Alkaline Phosphatase Troponin I 0.05 B-Natriuretic Peptide Total Protein Albumin Procalcitonin Blood Type Blood Type Recheck Antibody Screen Antigen Identification MTS Gel Crossmatch See Detail Bld Prod Order Comment Cancelled 01/03/19 01/04/19 01/04/19 23:52 06:02 06:28 WBC 7.5 RBC 3.23 L Hgb 10.7 L D Hct 31.1 L MCV 96.3 MCH 33.1 MCHC 34.4 RDW 16.5 Plt Count 124 L MPV 9.4 Neut % (Auto) 77.4 H Lymph % (Auto) 11.0 [place] % (Auto) 10.2 H Eos % (Auto) 0.9 Baso % (Auto) 0.5 Neut # (Auto) 5.8 Lymph # (Auto) 0.8 L [place] # (Auto) 0.8 Eos # (Auto) 0.1 Baso # (Auto) 0.0 WBC Differential . Differential Comment Auto diff final Retic Count Absolute Retic PT INR Sodium 139 Potassium 4.3 Chloride 107 Carbon Dioxide 22.3 Anion Gap 10 BUN 32 H Creatinine 1.72 H Estimated GFR 38 L Random Glucose 110 H Calcium 8.7 Total Bilirubin 4.1 H AST 15 ALT 14 Alkaline Phosphatase 118 H Troponin I 0.04 B-Natriuretic Peptide Total Protein 8.4 H Albumin 3.4 Procalcitonin Blood Type Blood Type Recheck Antibody Screen Antigen Identification MTS Gel Crossmatch Bld Prod Order Comment 01/04/19 01/04/19 01/04/19 06:28 06:28 06:28 WBC RBC Hgb Hct MCV MCH MCHC RDW Plt Count MPV Neut % (Auto) Lymph % (Auto) [place] % (Auto) Eos % (Auto) Baso % (Auto) Neut # (Auto) Lymph # (Auto) [place] # (Auto) Eos # (Auto) Baso # (Auto) WBC Differential Differential Comment Retic Count 1.7 Absolute Retic 53.6 PT 19.4 H INR 1.9 Sodium Potassium Chloride Carbon Dioxide Anion Gap BUN Creatinine Estimated GFR Random Glucose Calcium Total Bilirubin AST ALT Alkaline Phosphatase Troponin I B-Natriuretic Peptide 350 H Total Protein Albumin Procalcitonin Blood Type Blood Type Recheck Antibody Screen Antigen Identification MTS Gel Crossmatch Bld Prod Order Comment - Imaging Impressions Chest X-Ray 01/04/19 00:00 CONCLUSION: Minimal density in the right middle lobe with slight interstitial prominence but improved from previous study. <Damaso Castanon - Last Filed: 01/04/19 17:58> - Labs CBC & Chem 7: 01/04/19 06:28 01/04/19 06:02 Labs: Laboratory Results - last 24 hr 01/03/19 01/03/19 01/03/19 12:30 12:30 18:35 WBC RBC Hgb 8.7 L Hct 24.8 L MCV MCH MCHC RDW Plt Count MPV Neut % (Auto) Lymph % (Auto) [place] % (Auto) Eos % (Auto) Baso % (Auto) Neut # (Auto) Lymph # (Auto) [place] # (Auto) Eos # (Auto) Baso # (Auto) WBC Differential Differential Comment Retic Count Absolute Retic PT INR Sodium Potassium Chloride Carbon Dioxide Anion Gap BUN Creatinine Estimated GFR Random Glucose Calcium Total Bilirubin AST ALT Alkaline Phosphatase Troponin I B-Natriuretic Peptide Total Protein Albumin Procalcitonin 0.06 Blood Type O Positive Blood Type Recheck Required Antibody Screen Positive H Antigen Identification Jka Antigen - NEGATIVE MTS Gel Crossmatch See Detail Bld Prod Order Comment 01/03/19 01/03/19 01/03/19 18:37 22:26 23:20 WBC RBC Hgb 8.2 L Hct 23.5 L MCV MCH MCHC RDW Plt Count MPV Neut % (Auto) Lymph % (Auto) [place] % (Auto) Eos % (Auto) Baso % (Auto) Neut # (Auto) Lymph # (Auto) [place] # (Auto) Eos # (Auto) Baso # (Auto) WBC Differential Differential Comment Retic Count Absolute Retic PT INR Sodium Potassium Chloride Carbon Dioxide Anion Gap BUN Creatinine Estimated GFR Random Glucose Calcium Total Bilirubin AST ALT Alkaline Phosphatase Troponin I 0.05 B-Natriuretic Peptide Total Protein Albumin Procalcitonin Blood Type Blood Type Recheck Antibody Screen Antigen Identification MTS Gel Crossmatch See Detail Bld Prod Order Comment Cancelled 01/03/19 01/04/19 01/04/19 23:52 06:02 06:28 WBC 7.5 RBC 3.23 L Hgb 10.7 L D Hct 31.1 L MCV 96.3 MCH 33.1 MCHC 34.4 RDW 16.5 Plt Count 124 L MPV 9.4 Neut % (Auto) 77.4 H Lymph % (Auto) 11.0 [place] % (Auto) 10.2 H Eos % (Auto) 0.9 Baso % (Auto) 0.5 Neut # (Auto) 5.8 Lymph # (Auto) 0.8 L [place] # (Auto) 0.8 Eos # (Auto) 0.1 Baso # (Auto) 0.0 WBC Differential . Differential Comment Auto diff final Retic Count Absolute Retic PT INR Sodium 139 Potassium 4.3 Chloride 107 Carbon Dioxide 22.3 Anion Gap 10 BUN 32 H Creatinine 1.72 H Estimated GFR 38 L Random Glucose 110 H Calcium 8.7 Total Bilirubin 4.1 H AST 15 ALT 14 Alkaline Phosphatase 118 H Troponin I 0.04 B-Natriuretic Peptide Total Protein 8.4 H Albumin 3.4 Procalcitonin Blood Type Blood Type Recheck Antibody Screen Antigen Identification MTS Gel Crossmatch Bld Prod Order Comment 01/04/19 01/04/19 01/04/19 06:28 06:28 06:28 WBC RBC Hgb Hct MCV MCH MCHC RDW Plt Count MPV Neut % (Auto) Lymph % (Auto) [place] % (Auto) Eos % (Auto) Baso % (Auto) Neut # (Auto) Lymph # (Auto) [place] # (Auto) Eos # (Auto) Baso # (Auto) WBC Differential Differential Comment Retic Count 1.7 Absolute Retic 53.6 PT 19.4 H INR 1.9 Sodium Potassium Chloride Carbon Dioxide Anion Gap BUN Creatinine Estimated GFR Random Glucose Calcium Total Bilirubin AST ALT Alkaline Phosphatase Troponin I B-Natriuretic Peptide 350 H Total Protein Albumin Procalcitonin Blood Type Blood Type Recheck Antibody Screen Antigen Identification MTS Gel Crossmatch Bld Prod Order Comment - Imaging Impressions Chest X-Ray 01/04/19 00:00 CONCLUSION: Minimal density in the right middle lobe with slight interstitial prominence but improved from previous study. <Sue Mcnulty - Last Filed: 01/04/19 18:53> Assessment and Plan (1) On Coumadin for atrial fibrillation Status: Acute Code(s): Z78.9 - Other specified health status (2) Anemia Status: Acute Code(s): D64.9 - Anemia, unspecified (3) CHF (congestive heart failure) Status: Acute Code(s): I50.9 - Heart failure, unspecified (4) H/O mitral valve replacement with mechanical valve Status: Acute Code(s): Z95.2 - Presence of prosthetic heart valve (5) COPD (chronic obstructive pulmonary disease) Status: Chronic Code(s): J44.9 - Chronic obstructive pulmonary disease, unspecified (6) Subtherapeutic international normalized ratio (INR) Status: Acute Code(s): R79.1 - Abnormal coagulation profile (7) Thrombocytopenia Status: Acute Code(s): D69.6 - Thrombocytopenia, unspecified - Plan 01/04/2019 Patient is a very pleasant 83-year-old male with significant medical history of CHF atrial fibrillation COPD hypercholesterolemia and surgical history of cardiac stent mitral valve replacement status post CABG. patient is on Coumadin for A. fib and the MVR at home and manage by his drone software development engineer Dr. Machado. Approximately 2 weeks ago patient started having shortness of breathing and dyspnea on exertion. Denies syncopal episode. Patient admits to having black tarry stool during the last 2 weeks not associated with nausea vomiting and no abdominal pain. Denies fever. No NSAIDs use .patient presented to emergency room when his dyspnea is became severe. Last night patient has an episode of severe epistaxis but was otherwise controlled. Patient received 1 unit of cryo packed red blood cells with IV Bumex to prevent him from going into heart failure. Our service is consulted for extensive cardiac history and downtrending H&H and history of GI bleed. Assessment Acute blood loss probably upper GI bleed -initial hemoglobin was 9.5 deep down to 8.2 Received 1 unit of packed red blood cells overnight hemoglobin currently is 10.7 hematocrit 31.1 platelet 124 INR 1.9 Melena Anemia thrombocytopenia Supratherapeutic INR CHF -BNP elevated 250 Liver enzymes are normal AST 15 ALT 14 slightly elevated alkaline phosphatase at 118 Plan Clear liquid N.p.o. after midnight For EGD after cardiac clearance is obtained consent for EGD possibly Sunday Monitor active bleeding Monitor labs Strict I and Os Supportive care Further recommendations to follow This patient's was seen and examined by myself and Dr. Mcnulty and his note is written on his behalf - Attending Attestation Dr. Mcnulty <Damaso Castanon - Last Filed: 01/04/19 17:58> (1) On Coumadin for atrial fibrillation Status: Acute Code(s): Z78.9 - Other specified health status (2) Anemia Status: Acute Code(s): D64.9 - Anemia, unspecified (3) CHF (congestive heart failure) Status: Acute Code(s): I50.9 - Heart failure, unspecified (4) H/O mitral valve replacement with mechanical valve Status: Acute Code(s): Z95.2 - Presence of prosthetic heart valve (5) COPD (chronic obstructive pulmonary disease) Status: Chronic Code(s): J44.9 - Chronic obstructive pulmonary disease, unspecified (6) Subtherapeutic international normalized ratio (INR) Status: Acute Code(s): R79.1 - Abnormal coagulation profile (7) Thrombocytopenia Status: Acute Code(s): D69.6 - Thrombocytopenia, unspecified - Plan Seen and examined with FACILITIES ENGINEER, no active bleeding. EGD/Colonoscopy after cardiology clearance. Cardiology consult requested. Monitor labs, transfuse as needed. Thank you <Sue Mcnulty - Last Filed: 01/04/19 18:53>
[2019-01-04 19:39] LABS: Hematocrit 28.4 % (39.0-51.0); Hemoglobin 9.6 gm/dL (13.0-17.0)
--- NOTE | 2019-01-05 01:56 | MB ---
cc: Jose Jain MD DATE: 01/04/2019 REASON FOR CONSULTATION: Consult requested by hospitalist for evaluation of anemia and thrombocytopenia. HISTORY OF PRESENT ILLNESS: Alfie is a pleasant 83-year-old male. He is a winter visitor from [place]. He came in to the emergency room complaining of weakness and fatigue. The patient has been complaining of multiple nosebleeds which required multiple ER visits and admission to the hospital for last one year or so. The cause of the epistaxis is unknown. He had received blood transfusion a couple of weeks ago. He was admitted to [facility]. Those records are not available. He went to see his primary physician Dr. Snowden yesterday. A blood test was done. His received a call that his hemoglobin is 8.0, and he needs to report to the emergency room. In the emergency room, the patient had a blood test, which shows a white count of 5.0, hemoglobin 9.5, platelet count is 129. The patient is on observation. GI has been consulted. I have been asked to see him for further evaluation. The patient states that he has a history of chronic anemia. He saw a tyre fitter in [place] about 4-5 years ago. He said that he had a bone marrow biopsy. The result of that is unknown to them. They were told that did not have any leukemia. His said that on Sunday she will call the tyre fitter's office and try to get the bone marrow biopsy results. The patient is overall feeling okay. He denies any complaints at the present time. He denies any blood in the stool. He does not have any nosebleed. He has been on Coumadin, and his INR is 2.2. The rest of the review of systems is negative. PAST MEDICAL HISTORY: Coronary artery disease, status post triple bypass surgery, COPD, history of GI bleeding, heart valve disease. PAST SURGICAL HISTORY: Appendectomy, triple bypass surgery, stent placement to the right groin, mechanical mitral valve replacement, pacemaker. ALLERGIES: LISINOPRIL, CHLORPHENIRAMINE, HYDROCODONE, LASIX. MEDICATIONS PRIOR TO COMING TO HOSPITAL: 1. Albuterol. 2. Aspirin. 3. Atorvastatin. 4. Bumex. 5. Carvedilol. 6. Digoxin. 7. Finasteride. 8. Hydralazine. 9. Isosorbide. 10. Nitroglycerin. 11. Potassium. 12. Ranolazine. 13. Carafate. 14. Tamsulosin. 15. Anoro Ellipta 16. Coumadin. FAMILY HISTORY: None for malignancy. SOCIAL HISTORY: The patient does not smoke cigarettes, does not drink alcohol. PHYSICAL EXAMINATION: GENERAL: Well-developed elderly white male in no apparent distress. VITAL SIGNS: Temperature 97.9, heart rate is 80, blood pressure is 133/61, O2 saturation 96%. OBJECTIVE: VITAL SIGNS: Stable. Afebrile. HEAD, EYES, EARS, NOSE, AND THROAT: Pupils equal, round, reactive to light and accommodation, extraocular movements intact. Anicteric. No oral lesions noted. No thrush noted. NECK: Supple. No JVD. No masses noted. HEART: Mechanical heart sound noted. LUNGS: Decreased breath sounds in both sides. ABDOMEN: Soft and nontender. No hepatosplenomegaly. No abnormal bowel sounds. No guarding or rigidity noted. EXTREMITIES: No pedal edema. No cyanosis, no clubbing. NEUROLOGIC: Awake, alert, oriented x 3. Sensory and motor seem to be intact. SKIN: No bruises or petechiae noted. BREASTS: No masses noted. LYMPH NODES: No cervical, supraclavicular, or axillary lymphadenopathy noted. BACK: There is no spinal tenderness noted. ASSESSMENT: 1. Normocytic normochromic chronic anemia. Differential diagnosis is anemia of chronic renal failure versus myelodysplastic syndrome. 2. Mild thrombocytopenia may be from myelodysplastic syndrome until proven otherwise. PLAN: I have reviewed his available records. The patient underwent bone marrow biopsy 4-5 years ago in [place]. Those records are not available. Based on this, patient has chronic anemia dating back to 4-5 years. Now the patient has mild thrombocytopenia. I suspect that he has myelodysplastic syndrome. For that, the patient will need a repeat bone marrow biopsy. The patient and his both agreed with that. I will order the bone marrow biopsy by interventional radiologist for Sunday if he is still in the hospital. Otherwise, the procedure can be done as an outpatient. There is no urgency or emergency to do the procedure at this time. I will order B12, folate, and iron studies for further evaluation of the anemia and thrombocytopenia. We will also order haptoglobin as his total bilirubin is high at 4.1. We will get the LDH and reticulocyte count. Further recommendations will be based on his hospital stay. The patient's is concerned regarding the observation status. She thinks that Medicare would not pay for it, and they have to pay for staying in the hospital under observation. I advised them that they need to discuss with the window caser and the admitting physician about this. Thank you for asking my opinion. MD ALEC Ritchie/ashley , 12:37 AM , 12:50 AM ZAIDA
[2019-01-05 09:25] LABS: Hemoglobin 10.2 gm/dL (13.0-17.0)
[2019-01-05 09:30] LABS: Reticulocyte Percent 1.3 % (0.4-3.0)
[2019-01-05 09:32] LABS: Prothrombin Time 20.1 sec (9.8-11.6)
--- NOTE | 2019-01-05 09:34 | P.PNFP ---
Subjective Interval history: Patient seen and examined at bedside this am. No acute events overnight. He denies cp, sob, dizziness, nose bleeds, black stools, abd pain or n/v. Reports he feels well. His h/h remained stable overnight. patient seen with [facility] and he will need cardiac clearance before EGD procedure can be done. He has not been seen by cardiology yet. Patient will also need to have INR at or less than 1.5. INR on 01/04 was 1.9, todays INR is 2.0. <Ronald Causey - 01/05/19 16:33> Results - Labs Result diagrams: 01/05/19 19:06 01/05/19 08:46 <Cayla Moreno - 01/05/19 21:21> Abnormal lab results 01/05/19 01/05/19 01/05/19 Range/Units 08:46 08:46 08:46 RBC (4.50-5.90) mil/mm3 Hgb 10.2 L (13.0-17.0) gm/dL Hct 29.0 L (39.0-51.0) % Plt Count (150-450) th/mm3 [place] % (Auto) (0.0-8.0) % Haptoglobin (30-200) mg/dL PT 20.1 H (9.8-11.6) sec BUN 35 H (7-18) mg/dL Creatinine 1.58 H (0.60-1.30) mg/dL Estimated GFR 42 L (>89) mL/min Lactate Dehydrogenase (87-241) U/L Folate (3.1-17.5) ng/mL 01/05/19 01/05/19 01/05/19 Range/Units 08:46 08:46 19:06 RBC 3.05 L (4.50-5.90) mil/mm3 Hgb 10.1 L 10.7 L (13.0-17.0) gm/dL Hct 29.1 L 31.3 L (39.0-51.0) % Plt Count 136 L (150-450) th/mm3 [place] % (Auto) 10.1 H (0.0-8.0) % Haptoglobin Less than 10 L (30-200) mg/dL PT (9.8-11.6) sec BUN (7-18) mg/dL Creatinine (0.60-1.30) mg/dL Estimated GFR (>89) mL/min Lactate Dehydrogenase 252 H (87-241) U/L Folate 19.7 H (3.1-17.5) ng/mL Short CBC 01/05/19 01/05/19 01/05/19 Range/Units 08:46 08:46 19:06 WBC 5.7 (4.0-11.0) th/mm3 Hgb 10.2 L 10.1 L 10.7 L (13.0-17.0) gm/dL Hct 29.0 L 29.1 L 31.3 L (39.0-51.0) % Plt Count 136 L (150-450) th/mm3 BMP 01/05/19 08:46 Sodium 139 Potassium 3.8 Chloride 103 Carbon Dioxide 26.8 BUN 35 H Creatinine 1.58 H Calcium 8.7 <Cayla Moreno - 01/05/19 21:21> Abnormal lab results 01/04/19 01/05/19 Range/Units 18:25 08:46 Hgb 9.6 L 10.2 L (13.0-17.0) gm/dL Hct 28.4 L 29.0 L (39.0-51.0) % Short CBC 01/04/19 01/05/19 Range/Units 18:25 08:46 Hgb 9.6 L 10.2 L (13.0-17.0) gm/dL Hct 28.4 L 29.0 L (39.0-51.0) % <Ronald Causey - 01/05/19 09:34> - Imaging Impressions Chest X-Ray 01/04/19 00:00 CONCLUSION: Minimal density in the right middle lobe with slight interstitial prominence but improved from previous study. <Ronald Causey - 01/05/19 09:34> Physical Exam Vital signs: Vital Signs 01/05/19 00:00 01/05/19 03:55 01/05/19 04:00 Temperature 97.7 F 98.2 F Pulse Rate 80 80 81 Respiratory Rate 16 16 Blood Pressure 157/74 H 130/59 L Pulse Oximetry 94 L 92 L 01/05/19 07:20 01/05/19 11:55 01/05/19 15:35 Temperature 97.9 F 98.0 F 98.0 F Pulse Rate 80 80 78 Respiratory Rate 20 18 18 Blood Pressure 122/58 L 131/67 106/58 L Pulse Oximetry 98 97 94 L Intake & Output 01/05/19 01/05/19 01/06/19 06:59 18:59 06:59 Intake Total 600 / 600 Output Total 895 / 895 675 / 675 Balance -295 / -295 -675 / -675 Intake: Oral 600 / 600 Output: Urine 895 / 895 675 / 675 Other: # Voids 400 Date of Last Bowel Movement 01/04/19 01/04/19 <Cayla Moreno - 01/05/19 21:21> Vital Signs 01/04/19 11:30 01/04/19 12:00 01/04/19 17:42 Temperature 98.2 F 98.2 F Pulse Rate 80 80 80 Respiratory Rate 17 16 Blood Pressure 116/56 L 118/56 L Pulse Oximetry 95 95 01/04/19 19:41 01/04/19 19:58 01/04/19 20:00 Temperature 97.9 F Pulse Rate 80 80 Respiratory Rate 16 Blood Pressure 133/61 Pulse Oximetry 95 96 01/05/19 00:00 01/05/19 03:55 01/05/19 04:00 Temperature 97.7 F 98.2 F Pulse Rate 80 80 81 Respiratory Rate 16 16 Blood Pressure 157/74 H 130/59 L Pulse Oximetry 94 L 92 L 01/05/19 07:20 Temperature 97.9 F Pulse Rate 80 Respiratory Rate 20 Blood Pressure 122/58 L Pulse Oximetry 98 Intake & Output 01/04/19 01/05/19 01/05/19 18:59 06:59 18:59 Intake Total 600 / 600 Output Total 895 / 895 Balance -295 / -295 Intake: Oral 600 / 600 Output: Urine 895 / 895 Other: Date of Last Bowel Movement 01/04/19 01/04/19 <Ronald Causey D - 01/05/19 09:34> Narrative: Narrative: GENERAL: well appearing elderly male in no apparent distress, siting up in bed. SKIN: Warm and dry. HEAD: Atraumatic. Normocephalic. EYES: Pupils equal and round. No scleral icterus. No injection or drainage. ENT: No nasal bleeding or discharge. Mucous membranes pink and moist. NECK: Trachea midline. No JVD. CARDIOVASCULAR: Regular rate and rhythm. No murmurs, gallops, or rubs. RESPIRATORY: No accessory muscle use. Clear to auscultation. Breath sounds equal bilaterally. GASTROINTESTINAL: Abdomen soft, non-tender, nondistended. Hepatic and splenic margins not palpable. MUSCULOSKELETAL: Extremities without significant edema. No cyanosis. No obvious deformities. NEUROLOGICAL: Awake and alert. No obvious cranial nerve deficits. Motor and strength in the arms and legs. Normal speech. <Ronald Causey - 01/05/19 16:33> Assessment and Plan - Assessment (1) Anemia Code(s): D64.9 - Anemia, unspecified Status: Acute (2) Community acquired pneumonia Code(s): J18.9 - Pneumonia, unspecified organism Status: Ruled-out (3) CHF (congestive heart failure) Code(s): I50.9 - Heart failure, unspecified Status: Acute (4) H/O mitral valve replacement with mechanical valve Code(s): Z95.2 - Presence of prosthetic heart valve Status: Acute (5) Subtherapeutic international normalized ratio (INR) Code(s): R79.1 - Abnormal coagulation profile Status: Acute (6) COPD (chronic obstructive pulmonary disease) Code(s): J44.9 - Chronic obstructive pulmonary disease, unspecified Status: Chronic (7) Nutrition, metabolism, and development symptoms Code(s): R63.8 - Other symptoms and signs concerning food and fluid intake Status: Acute <Cayla Moreno - 01/05/19 21:21> (1) Anemia Code(s): D64.9 - Anemia, unspecified Status: Acute Plan: Patient is a 83-year-old male with significant past medical history of mechanical mitral valve on warfarin, triple bypass, pacemaker placement, GI bleed, and COPD who presented to the ED 01/03 at a physician's request due to borderline hemoglobin of 8. Patient has had progressive sxs of malaise and dyspnea on minimal exertion associated with prior h/o of severe nose bleeds ( most recent at the beginning of 2017). Plan initially was to give patient 2 units of PRBCs. He is status post 1 unit leuko-reduced PRBC after which she did have some increased shortness of breath overnight. He did receive 1mg IV Bumex x2 and felt better after this. Hemoglobin admission was 9.5 with trending showing hemoglobin of 8.7, 8.2 and then post transfusion 10.7. H/H this am of 10.. His MCV is normal with only mild reduction in platelet count. INR on admission was 2.2 but patient is on warfarin as noted elsewhere. Last warfarin dose (5mg) given yesterday at 17:54. Patient does have a history of nosebleeds and no nosebleeds overnight. Plan: Continue to monitor hemoglobin every 12 hours Transfuse if Hgb less than 8 Hemoccult negative GI consulted, appreciate recommendations Plan for EGD procedure on Sunday pending cardiology clearance GI we will not do EGD procedure with INR greater than or equal to 1.5 unless cleared by cardiology for procedure. Cardiology consulted, follow recommendations Hematology consulted, appreciate recommendations Normocytic normochromic chronic anemia secondary to myelodysplastic syndrome Follow-up iron, haptoglobin, B12 and folate studies Reticular sites within normal limits Plan to repeat bone marrow biopsy on Sunday (2) Community acquired pneumonia Code(s): J18.9 - Pneumonia, unspecified organism Status: Ruled-out Plan: In the ED patient found to have CXR showing mild patchy infiltrate in the right middle lobe. Pulmonary venous congestion. Patient received 1 dose of azithromycin and Rocephin in the ED. VS WNL no leukocytosis Continue to monitor vital signs Titrate oxygen as needed to keep O2 sats greater than 92% We will discontinue azithromycin and Rocephin as there is no evidence of community acquired pneumonia based on normal pro calcitonin level and symptomatic improvement overall Consider starting antibiotics if patient develops fever Blood cultures no growth to date (3) CHF (congestive heart failure) Code(s): I50.9 - Heart failure, unspecified Status: Acute Plan: Patient history of CHF with complaint of worsening dyspnea on minimal exertion. Admitted for management of CHF exacerbation. Patient's vital signs within normal limits Comfortable while at rest. BNP 227 then 350 Patient is allergic to Lasix however has tolerated Bumex well for diuresis Bumex 1 mg IV daily for now. Home dose 1.mg PO daily held. placed on telemetry Serial troponins and EKG not suggestive of cardiac insult or ischemia Strict I's and O's Cardiac diet Continue Imdur 30 mg daily, hydralazine 25mg BID, carvedilol 6.25mg daily, digoxin 125mg daily. Continue home dose atorvastatin 10mg hs. Continue Ranexa 500mg TID. (4) H/O mitral valve replacement with mechanical valve Code(s): Z95.2 - Presence of prosthetic heart valve Status: Acute Plan: Patient with history of mechanical mitral valve on warfarin. INR goal for this type of valve is 2.53.5. INR subtherapeutic at 2.2 on admission. INR of 2 on 01/05 Home dosages of warfarin initially held, however antibiotics were discontinued on 01/04 given no discrete evidence of pneumonia on hold due to possible elevation of INR while patient is on antibiotics. Patient given one-time dose of warfarin 3 mg on 01/03/19 and 5mg warfarin x1 on . Daily INRs Patient will be started on heparin 5000 units 3 times daily today 01/05 and warfarin will be held. Cardiology consulted for further recommendations and management of INR, appreciate recommendations See plan for anemia above (5) Subtherapeutic international normalized ratio (INR) Code(s): R79.1 - Abnormal coagulation profile Status: Acute Plan: See above plan (6) COPD (chronic obstructive pulmonary disease) Code(s): J44.9 - Chronic obstructive pulmonary disease, unspecified Status: Chronic Plan: Patient with chronic history of COPD Continue with Anoro-Ellipta at home dose Continue with Albuterol nebs PRN q4hr (7) Nutrition, metabolism, and development symptoms Code(s): R63.8 - Other symptoms and signs concerning food and fluid intake Status: Acute Plan: Fluids: Not indicated at this time Electrolytes: Replete as needed Diet cardiac diet, low sodium and fluid restriction DVT prophylaxis: Patient started on heparin 5000 units 3 times daily on 01/05 <Ronald Causey - 01/05/19 16:16> - Attending Attestation Patient seen and examined this morning, discussed with Dr Harmon. I agree with assessment and management as documented and discussed with me. Pt is feeling OK. No further nosebleeds. Bone marrow biopsy and EGD/colonoscopy planned, once INR <1.5. Await cardiac evaluation prior to procedures. Warfarin held and heparin started in anticipation of upcoming procedures. <Cayla Moreno - 01/05/19 21:21>
[2019-01-05 09:49] LABS: Iron 74 mcg/dL (65-175); Lactate Dehydrogenase 252 U/L (87-241)
[2019-01-05 09:50] LABS: Calcium 8.7 mg/dL (8.5-10.1); Carbon Dioxide 26.8 meq/L (21.0-32.0); Potassium 3.8 meq/L (3.5-5.1)
--- NOTE | 2019-01-05 09:55 | P.PNONC ---
Subjective Interval history: Patient sitting up in bed, eating breakfast. He denies any further nosebleeds, denies bleeding from any other source. Objective Vital Signs/Intake & Output: Vital Signs 01/04/19 11:30 01/04/19 12:00 01/04/19 17:42 Temperature 98.2 F 98.2 F Pulse Rate 80 80 80 Respiratory Rate 17 16 Blood Pressure 116/56 L 118/56 L Pulse Oximetry 95 95 01/04/19 19:41 01/04/19 19:58 01/04/19 20:00 Temperature 97.9 F Pulse Rate 80 80 Respiratory Rate 16 Blood Pressure 133/61 Pulse Oximetry 95 96 01/05/19 00:00 01/05/19 03:55 01/05/19 04:00 Temperature 97.7 F 98.2 F Pulse Rate 80 80 81 Respiratory Rate 16 16 Blood Pressure 157/74 H 130/59 L Pulse Oximetry 94 L 92 L 01/05/19 07:20 Temperature 97.9 F Pulse Rate 80 Respiratory Rate 20 Blood Pressure 122/58 L Pulse Oximetry 98 Intake & Output 01/04/19 01/05/19 01/05/19 18:59 06:59 18:59 Intake Total 600 / 600 Output Total 895 / 895 Balance -295 / -295 Intake: Oral 600 / 600 Output: Urine 895 / 895 Other: Date of Last Bowel Movement 01/04/19 01/04/19 Result Diagrams: 01/05/19 19:06 01/05/19 08:46 Laboratory Results: Laboratory Results - last 24 hr 01/04/19 01/04/19 01/05/19 06:28 18:25 08:46 Hgb 9.6 L 10.2 L Hct 28.4 L 29.0 L Retic Count 1.7 Absolute Retic 53.6 PT INR 01/05/19 01/05/19 08:46 08:46 Hgb Hct Retic Count 1.3 Absolute Retic 40.4 PT 20.1 H INR 2.0 Culture Results: Microbiology 01/03/19 14:20 Aerobic Blood Culture - Preliminary Blood - Peripheral No growth in 1 day Anaerobic Blood Culture - Preliminary No growth in 1 day 01/03/19 14:19 Aerobic Blood Culture - Preliminary Blood - Peripheral No growth in 1 day Anaerobic Blood Culture - Preliminary No growth in 1 day 01/04/19 00:21 Stool Occult Blood (SERG) - Final Stool Hemoccult negative Imaging Studies: Impressions Chest X-Ray 01/04/19 00:00 CONCLUSION: Minimal density in the right middle lobe with slight interstitial prominence but improved from previous study. Medications: Active Medications Generic Name Dose Route Start Last Admin Trade Name Freq PRN Reason Stop Dose Admin Atorvastatin Calcium 10 mg 01/03/19 18:00 01/04/19 17:54 Lipitor PO 10 mg QPM IVA Administration Bumetanide 1 mg 01/03/19 18:00 01/04/19 11:13 Bumex Inj IV.PUSH 1 mg DAILY IVA Administration Carvedilol 6.25 mg 01/04/19 09:00 01/04/19 10:29 Coreg PO 6.25 mg DAILY IVA Administration Digoxin 125 mcg 01/04/19 09:00 01/04/19 10:28 Lanoxin PO 125 mcg DAILY IVA Administration Finasteride 5 mg 01/04/19 18:00 01/04/19 17:54 Proscar PO 5 mg QPM IVA Administration Hydralazine HCl 25 mg 01/03/19 21:00 01/04/19 22:20 Apresoline PO 25 mg BID IVA Administration Isosorbide Mononitrate 30 mg 01/04/19 09:00 01/04/19 10:29 Imdur PO 30 mg DAILY IVA Administration Ranolazine 500 mg 01/04/19 18:00 01/04/19 17:52 Ranexa PO 500 mg TID IVA Administration Senna/Docusate Sodium 1 tab 01/03/19 21:00 01/04/19 22:21 Kia-Colace PO Not Given BID [facility] Sodium Chloride 2 ml 01/03/19 21:00 01/04/19 22:20 Ns Flush IV.FLUSH 2 ml BID IVA Administration Tamsulosin HCl 0.4 mg 01/03/19 21:00 01/04/19 22:20 Flomax PO 0.4 mg BID IVA Administration Umeclidinium/Vilanterol 1 inhalation 01/03/19 17:00 01/04/19 17:58 Anoro-Ellipta 62.5/25 Mcg Inh INH 1 inhalation Q24H IVA Administration Objective Remarks: GENERAL: Well-nourished, well-developed elderly male patient, no acute distress. SKIN: Warm and dry. HEAD: Normocephalic. EYES: No scleral icterus. No injection or drainage. NECK: Supple, trachea midline. CARDIOVASCULAR: Positive S1/S2 without murmurs. RESPIRATORY: Posterior breath sounds equal bilaterally. Nonlabored. GASTROINTESTINAL: Abdomen soft, non-tender, nondistended. EXTREMITIES: No cyanosis, or edema. MUSCULOSKELETAL: Adequate muscle tone. NEUROLOGICAL: No obvious focal deficit. Awake, alert, and oriented x3. PSYCHIATRIC: Appropriate mood and affect; insight and judgment normal. Assessment/Plan - Plan Mr. Mariee is a pleasant 83-year-old gentleman, currently hospitalized after coming to the ER with epistaxis. Hematology was consulted for anemia and thrombocytopenia. Plan: 1. Normocytic normochromic chronic anemia, possibly secondary to myelodysplastic syndrome. Iron studies, B12 and folate labs are pending. Reticulocyte count WNL, haptoglobin pending. Will repeat bone marrow biopsy tomorrow. 2. Review of records, GI plans on EGD/colonoscopy after cardiac clearance is obtained and the patient's INR is appropriate. 3. Repeat CBC in the a.m. Await bone marrow biopsy per - Attending Statement The exam, history, and the medical decision-making described in the above note were completed with the assistance of the mid-level provider. I reviewed and agree with the findings presented. I attest that I had a [id number] encounter with the patient on the same day, and personally performed and documented my assessment and findings in the medical record. Patient denies any new complaint He is still in the ER waiting to be transferred to regular floor He is scheduled to have GI workup tomorrow Anemia workup shows possible hemolysis. I have order direct Madi test No deficiency of B12, folate or iron. I will defer the bone marrow biopsy at this time. Patient's will call [place] and try to get the previous bone marrow biopsy results for comparison.
[2019-01-05 10:15] LABS: % Iron Saturation 21.8 % (20-50); Ferritin 132 ng/mL (26-388); Folate 19.7 ng/mL (3.1-17.5); Total Iron Binding Capacity 339 mcg/dL (250-450); Vitamin B12 665 pg/mL (193-986)
[2019-01-05] MEDS: Isosorbide Mononitrate 30 MG ER 24HR Tablet (Imdur) PO SCH (10:51)
[2019-01-05] MEDS: Ranolazine 500 MG 12HR ER Tablet PO SCH ×3 (10:51→18:42)
[2019-01-05] MEDS: Digoxin 125 MCG Tablet PO SCH (10:51)
[2019-01-05] MEDS: Senna/Docusate Sodium 8.6/50 MG Tablet PO SCH ×2 (10:52→22:13)
[2019-01-05] MEDS: Carvedilol 6.25 MG Tablet PO SCH (10:53)
[2019-01-05] MEDS: hydrALAZINE 25 MG Tablet PO SCH ×2 (10:53→22:12)
--- NOTE | 2019-01-05 11:23 | P.PNGI ---
Subjective Interval history: Patient is sitting up in the bed eating and drinking breakfast with no nausea no vomiting no abdominal pain Air volumes slow but no obvious wheezing and no obvious shortness of breath for now Labs reviewed which show bilirubin 4.1, normal LFTs. Alkaline phosphatase 118 Hemoglobin 9.6 no obvious bleeding now, BNP still remains elevated, cardiology consult pending <Fay Salgado - Last Filed: 01/05/19 11:23> Physical Exam Vital signs: Vital Signs 01/04/19 11:30 01/04/19 12:00 01/04/19 17:42 Temperature 98.2 F 98.2 F Pulse Rate 80 80 80 Respiratory Rate 17 16 Blood Pressure 116/56 L 118/56 L Pulse Oximetry 95 95 01/04/19 19:41 01/04/19 19:58 01/04/19 20:00 Temperature 97.9 F Pulse Rate 80 80 Respiratory Rate 16 Blood Pressure 133/61 Pulse Oximetry 95 96 01/05/19 00:00 01/05/19 03:55 01/05/19 04:00 Temperature 97.7 F 98.2 F Pulse Rate 80 80 81 Respiratory Rate 16 16 Blood Pressure 157/74 H 130/59 L Pulse Oximetry 94 L 92 L 01/05/19 07:20 Temperature 97.9 F Pulse Rate 80 Respiratory Rate 20 Blood Pressure 122/58 L Pulse Oximetry 98 Intake & Output 01/04/19 01/05/19 01/05/19 18:59 06:59 18:59 Intake Total 600 / 600 Output Total 895 / 895 Balance -295 / -295 Intake: Oral 600 / 600 Output: Urine 895 / 895 Other: Date of Last Bowel Movement 01/04/19 01/04/19 - Constitutional mild distress, chronically ill appearing, cooperative - Routine HEENT Exam Head: Present: normocephalic ENT: Present: mucous membranes moist - Routine Neck Exam Present: supple - Routine Respiratory Exam Present: accessory muscle use (Mild diminished breath sound but no obvious wheezing or rhonchi) - Routine Cardiovascular Exam Present: S1, S2, murmur - Routine Abdominal Exam Present: soft, normoactive bowel sounds (No obvious tenderness to light palpation) <Fay Salgado - Last Filed: 01/05/19 11:23> Vital signs: Vital Signs 01/04/19 17:42 01/04/19 19:41 01/04/19 19:58 Temperature 98.2 F 97.9 F Pulse Rate 80 80 Respiratory Rate 16 16 Blood Pressure 118/56 L 133/61 Pulse Oximetry 95 95 96 01/04/19 20:00 01/05/19 00:00 01/05/19 03:55 Temperature 97.7 F Pulse Rate 80 80 80 Respiratory Rate 16 Blood Pressure 157/74 H Pulse Oximetry 94 L 01/05/19 04:00 01/05/19 07:20 Temperature 98.2 F 97.9 F Pulse Rate 81 80 Respiratory Rate 16 20 Blood Pressure 130/59 L 122/58 L Pulse Oximetry 92 L 98 Intake & Output 01/04/19 01/05/19 01/05/19 18:59 06:59 18:59 Intake Total 600 / 600 Output Total 895 / 895 Balance -295 / -295 Intake: Oral 600 / 600 Output: Urine 895 / 895 Other: Date of Last Bowel Movement 01/04/19 01/04/19 <Sue Mcnulty - Last Filed: 01/05/19 12:15> Results - Labs CBC & Chem 7: 01/05/19 08:46 01/05/19 08:46 Laboratory Results - last 24 hr 01/04/19 01/04/19 01/05/19 06:28 18:25 08:46 Hgb 9.6 L Hct 28.4 L Retic Count 1.7 Absolute Retic 53.6 Haptoglobin PT INR Sodium 139 Potassium 3.8 Chloride 103 Carbon Dioxide 26.8 Anion Gap 9 BUN 35 H Creatinine 1.58 H Estimated GFR 42 L Random Glucose 87 Calcium 8.7 Iron TIBC % Saturation Ferritin Lactate Dehydrogenase Total Protein (PEP) Vitamin B12 Folate 01/05/19 01/05/19 01/05/19 08:46 08:46 08:46 Hgb 10.2 L Hct 29.0 L Retic Count 1.3 Absolute Retic 40.4 Haptoglobin PT 20.1 H INR 2.0 Sodium Potassium Chloride Carbon Dioxide Anion Gap BUN Creatinine Estimated GFR Random Glucose Calcium Iron TIBC % Saturation Ferritin Lactate Dehydrogenase Total Protein (PEP) Vitamin B12 Folate 01/05/19 08:46 Hgb Hct Retic Count Absolute Retic Haptoglobin Less than 10 L PT INR Sodium Potassium Chloride Carbon Dioxide Anion Gap BUN Creatinine Estimated GFR Random Glucose Calcium Iron 74 TIBC 339 % Saturation 21.8 Ferritin 132 Lactate Dehydrogenase 252 H Total Protein (PEP) 8.2 Vitamin B12 665 Folate 19.7 H Microbiology 01/03/19 14:20 Blood - Peripheral Aerobic Blood Culture - Preliminary No growth in 2 days 01/03/19 14:20 Blood - Peripheral Anaerobic Blood Culture - Preliminary No growth in 2 days 01/03/19 14:19 Blood - Peripheral Aerobic Blood Culture - Preliminary No growth in 2 days 01/03/19 14:19 Blood - Peripheral Anaerobic Blood Culture - Preliminary No growth in 2 days - Imaging Impressions Chest X-Ray 01/04/19 00:00 CONCLUSION: Minimal density in the right middle lobe with slight interstitial prominence but improved from previous study. <Fay Salgado - Last Filed: 01/05/19 11:23> - Labs CBC & Chem 7: 01/05/19 08:46 01/05/19 08:46 Laboratory Results - last 24 hr 01/04/19 01/04/19 01/05/19 06:28 18:25 08:46 WBC RBC Hgb 9.6 L Hct 28.4 L MCV MCH MCHC RDW Plt Count MPV Neut % (Auto) Lymph % (Auto) [place] % (Auto) Eos % (Auto) Baso % (Auto) Neut # (Auto) Lymph # (Auto) [place] # (Auto) Eos # (Auto) Baso # (Auto) WBC Differential Differential Comment Retic Count 1.7 Absolute Retic 53.6 Haptoglobin PT INR Sodium 139 Potassium 3.8 Chloride 103 Carbon Dioxide 26.8 Anion Gap 9 BUN 35 H Creatinine 1.58 H Estimated GFR 42 L Random Glucose 87 Calcium 8.7 Iron TIBC % Saturation Ferritin Lactate Dehydrogenase Total Protein (PEP) Vitamin B12 Folate 01/05/19 01/05/19 01/05/19 08:46 08:46 08:46 WBC RBC Hgb 10.2 L Hct 29.0 L MCV MCH MCHC RDW Plt Count MPV Neut % (Auto) Lymph % (Auto) [place] % (Auto) Eos % (Auto) Baso % (Auto) Neut # (Auto) Lymph # (Auto) [place] # (Auto) Eos # (Auto) Baso # (Auto) WBC Differential Differential Comment Retic Count 1.3 Absolute Retic 40.4 Haptoglobin PT 20.1 H INR 2.0 Sodium Potassium Chloride Carbon Dioxide Anion Gap BUN Creatinine Estimated GFR Random Glucose Calcium Iron TIBC % Saturation Ferritin Lactate Dehydrogenase Total Protein (PEP) Vitamin B12 Folate 01/05/19 01/05/19 08:46 08:46 WBC 5.7 RBC 3.05 L Hgb 10.1 L Hct 29.1 L MCV 95.2 MCH 33.1 MCHC 34.7 RDW 16.4 Plt Count 136 L MPV 9.4 Neut % (Auto) 62.8 Lymph % (Auto) 23.7 [place] % (Auto) 10.1 H Eos % (Auto) 2.9 Baso % (Auto) 0.5 Neut # (Auto) 3.6 Lymph # (Auto) 1.3 [place] # (Auto) 0.6 Eos # (Auto) 0.2 Baso # (Auto) 0.0 WBC Differential . Differential Comment Auto diff final Retic Count Absolute Retic Haptoglobin Less than 10 L PT INR Sodium Potassium Chloride Carbon Dioxide Anion Gap BUN Creatinine Estimated GFR Random Glucose Calcium Iron 74 TIBC 339 % Saturation 21.8 Ferritin 132 Lactate Dehydrogenase 252 H Total Protein (PEP) 8.2 Vitamin B12 665 Folate 19.7 H Microbiology 01/03/19 14:20 Blood - Peripheral Aerobic Blood Culture - Preliminary No growth in 2 days 01/03/19 14:20 Blood - Peripheral Anaerobic Blood Culture - Preliminary No growth in 2 days 01/03/19 14:19 Blood - Peripheral Aerobic Blood Culture - Preliminary No growth in 2 days 01/03/19 14:19 Blood - Peripheral Anaerobic Blood Culture - Preliminary No growth in 2 days <Sue Mcnulty - Last Filed: 01/05/19 12:15> Assessment and Plan (1) On Coumadin for atrial fibrillation Status: Acute Code(s): Z78.9 - Other specified health status (2) Anemia Status: Acute Code(s): D64.9 - Anemia, unspecified (3) CHF (congestive heart failure) Status: Acute Code(s): I50.9 - Heart failure, unspecified (4) H/O mitral valve replacement with mechanical valve Status: Acute Code(s): Z95.2 - Presence of prosthetic heart valve (5) COPD (chronic obstructive pulmonary disease) Status: Chronic Code(s): J44.9 - Chronic obstructive pulmonary disease, unspecified (6) Subtherapeutic international normalized ratio (INR) Status: Acute Code(s): R79.1 - Abnormal coagulation profile (7) Thrombocytopenia Status: Acute Code(s): D69.6 - Thrombocytopenia, unspecified - Plan 01/04/2019 Patient is a very pleasant 83-year-old male with significant medical history of CHF atrial fibrillation COPD hypercholesterolemia and surgical history of cardiac stent mitral valve replacement status post CABG. patient is on Coumadin for A. fib and the MVR at home and manage by his french folder Dr. Machado. Approximately 2 weeks ago patient started having shortness of breathing and dyspnea on exertion. Denies syncopal episode. Patient admits to having black tarry stool during the last 2 weeks not associated with nausea vomiting and no abdominal pain. Denies fever. No NSAIDs use .patient presented to emergency room when his dyspnea is became severe. Last night patient has an episode of severe epistaxis but was otherwise controlled. Patient received 1 unit of cryo packed red blood cells with IV Bumex to prevent him from going into heart failure. Our service is consulted for extensive cardiac history and downtrending H&H and history of GI bleed. Assessment Acute blood loss probably upper GI bleed -initial hemoglobin was 9.5 deep down to 8.2 Received 1 unit of packed red blood cells overnight hemoglobin currently is 10.7 hematocrit 31.1 platelet 124 INR 1.9 Melena Anemia thrombocytopenia Supratherapeutic INR CHF -BNP elevated 250 Liver enzymes are normal AST 15 ALT 14 slightly elevated alkaline phosphatase at 118 01/05/2019, patient is able to eat without nausea vomiting this a.m. and no abdominal pain. Discussed with patient the need for reflux precautions, hydration with caution. Cardiology consult pending. Discussed with patient the need for EGD colonoscopy once he is stable from a cardiac perspective and can come off his Coumadin, we will need to monitor INR and treat accordingly. Labs reviewed which show hemoglobin 9.6 Anemia but appears to be stable for now no obvious GI bleed this a.m. Hyperbilirubinemia currently 4.1, stable but no elevation in LFTs Patient denies any epistaxis for the last few days, patient has been on Coumadin therapy Plan Diet cardiac as tolerated per attending Plan for EGD and colonoscopy once stable from a cardiac perspective PPI Bowel regimen as needed Antiemetics as needed Monitor labs with special attention hemoglobin, also monitor for any epistaxis Supportive care Further recommendations to follow Patient was seen per myself and Dr. Mcnulty, note was written on his behalf <Fay Salgado - Last Filed: 01/05/19 11:23> (1) On Coumadin for atrial fibrillation Status: Acute Code(s): Z78.9 - Other specified health status (2) Anemia Status: Acute Code(s): D64.9 - Anemia, unspecified (3) CHF (congestive heart failure) Status: Acute Code(s): I50.9 - Heart failure, unspecified (4) H/O mitral valve replacement with mechanical valve Status: Acute Code(s): Z95.2 - Presence of prosthetic heart valve (5) COPD (chronic obstructive pulmonary disease) Status: Chronic Code(s): J44.9 - Chronic obstructive pulmonary disease, unspecified (6) Subtherapeutic international normalized ratio (INR) Status: Acute Code(s): R79.1 - Abnormal coagulation profile (7) Thrombocytopenia Status: Acute Code(s): D69.6 - Thrombocytopenia, unspecified - Plan Seen and examined with EGG SORTER, no active bleeding. GI barnes once cleared by cardiology. <Sue Mcnulty - Last Filed: 01/05/19 12:15>
[2019-01-05 12:14] LABS: Baso % (Auto) 0.5 % (0.0-2.0); Eos # (Auto) 0.2 th/mm3 (0.0-0.4); Eos % (Auto) 2.9 % (0.0-4.0); Hematocrit 29.1 % (39.0-51.0); Hemoglobin 10.1 gm/dL (13.0-17.0); Lymph # (Auto) 1.3 th/mm3 (1.0-4.8); Lymph % (Auto) 23.7 % (9.0-44.0); Mean Corpuscular HGB Conc 34.7 % (32.0-36.0); Mean Corpuscular Hemoglobin 33.1 pg (27.0-34.0); Mean Corpuscular Volume 95.2 fL (80.0-100.0); Mean Platelet Volume 9.4 fL (7.0-11.0); Mono # (Auto) 0.6 th/mm3 (0.0-0.9); Mono % (Auto) 10.1 % (0.0-8.0); Neut # (Auto) 3.6 th/mm3 (1.8-7.7); Neut % (Auto) 62.8 % (16.0-70.0); Platelet Count 136 th/mm3 (150-450); Red Blood Count 3.05 mil/mm3 (4.50-5.90); Red Cell Distribution Width 16.4 % (11.6-17.2); White Blood Count 5.7 th/mm3 (4.0-11.0)
[2019-01-05] MEDS: Umeclindinium 62.5 MCG/Vilanterol 25 MCG Inhaler INH SCH (17:26)
[2019-01-05] MEDS: Heparin - SQ 10,000 UNITS/ML Vial SQ SCH (17:26)
[2019-01-05] MEDS: Finasteride 5 MG Tablet PO SCH (18:42)
[2019-01-05 19:54] LABS: Hematocrit 31.3 % (39.0-51.0); Hemoglobin 10.7 gm/dL (13.0-17.0)
[2019-01-06] MEDS: Heparin - SQ 10,000 UNITS/ML Vial SQ SCH ×2 (00:32→08:53)
[2019-01-06 06:05] LABS: Hematocrit 30.2 % (39.0-51.0); Hemoglobin 10.5 gm/dL (13.0-17.0); Mean Corpuscular HGB Conc 34.8 % (32.0-36.0); Mean Corpuscular Volume 94.8 fL (80.0-100.0); Mean Platelet Volume 8.9 fL (7.0-11.0); Platelet Count 141 th/mm3 (150-450); Red Blood Count 3.18 mil/mm3 (4.50-5.90); Red Cell Distribution Width 16.1 % (11.6-17.2); White Blood Count 6.3 th/mm3 (4.0-11.0)
[2019-01-06 06:06] LABS: Activated Partial Thrombo Time 28.1 sec (23.4-31.7)
[2019-01-06 06:30] LABS: Calcium 8.9 mg/dL (8.5-10.1); Carbon Dioxide 28.8 meq/L (21.0-32.0); Potassium 4.6 meq/L (3.5-5.1)
--- NOTE | 2019-01-06 08:33 | P.PNFP ---
Subjective Interval history: No acute events overnight. Patient resting comfortably in bed. Patient has declined EGD, would like to go home Bone biopsy deferred for now per hem/onc. will follow up outpatient No complaints this morning. Denies CP, SOB, N/V, and fevers. <Gris Lopez T - 01/06/19 14:58> Results - Labs Result diagrams: 01/06/19 05:40 01/06/19 05:40 <Cayla Moreno - 01/06/19 21:08> Abnormal lab results 01/06/19 01/06/19 01/06/19 Range/Units 05:40 05:40 05:40 RBC 3.18 L (4.50-5.90) mil/mm3 Hgb 10.5 L (13.0-17.0) gm/dL Hct 30.2 L (39.0-51.0) % Plt Count 141 L (150-450) th/mm3 PT 20.0 H (9.8-11.6) sec Fibrinogen 433 H (227-377) mg/dL BUN 40 H (7-18) mg/dL Creatinine 1.69 H (0.60-1.30) mg/dL Estimated GFR 39 L (>89) mL/min Total Bilirubin (0.2-1.0) mg/dL Direct Bilirubin (0.0-0.2) mg/dL Lactate Dehydrogenase (87-241) U/L 01/06/19 Range/Units 05:40 RBC (4.50-5.90) mil/mm3 Hgb (13.0-17.0) gm/dL Hct (39.0-51.0) % Plt Count (150-450) th/mm3 PT (9.8-11.6) sec Fibrinogen (227-377) mg/dL BUN (7-18) mg/dL Creatinine (0.60-1.30) mg/dL Estimated GFR (>89) mL/min Total Bilirubin 1.9 H (0.2-1.0) mg/dL Direct Bilirubin 0.4 H (0.0-0.2) mg/dL Lactate Dehydrogenase 311 H (87-241) U/L Short CBC 01/06/19 Range/Units 05:40 WBC 6.3 (4.0-11.0) th/mm3 Hgb 10.5 L (13.0-17.0) gm/dL Hct 30.2 L (39.0-51.0) % Plt Count 141 L (150-450) th/mm3 BMP 01/06/19 05:40 Sodium 138 Potassium 4.6 D Chloride 100 Carbon Dioxide 28.8 BUN 40 H Creatinine 1.69 H Calcium 8.9 Liver Function 01/06/19 Range/Units 05:40 Total Bilirubin 1.9 H (0.2-1.0) mg/dL Direct Bilirubin 0.4 H (0.0-0.2) mg/dL <Cayla Moreno - 01/06/19 21:08> Abnormal lab results 01/05/19 01/05/19 01/05/19 Range/Units 08:46 08:46 08:46 RBC (4.50-5.90) mil/mm3 Hgb 10.2 L (13.0-17.0) gm/dL Hct 29.0 L (39.0-51.0) % Plt Count (150-450) th/mm3 [place] % (Auto) (0.0-8.0) % Haptoglobin (30-200) mg/dL PT 20.1 H (9.8-11.6) sec Fibrinogen (227-377) mg/dL BUN 35 H (7-18) mg/dL Creatinine 1.58 H (0.60-1.30) mg/dL Estimated GFR 42 L (>89) mL/min Lactate Dehydrogenase (87-241) U/L Folate (3.1-17.5) ng/mL 01/05/19 01/05/19 01/05/19 Range/Units 08:46 08:46 19:06 RBC 3.05 L (4.50-5.90) mil/mm3 Hgb 10.1 L 10.7 L (13.0-17.0) gm/dL Hct 29.1 L 31.3 L (39.0-51.0) % Plt Count 136 L (150-450) th/mm3 [place] % (Auto) 10.1 H (0.0-8.0) % Haptoglobin Less than 10 L (30-200) mg/dL PT (9.8-11.6) sec Fibrinogen (227-377) mg/dL BUN (7-18) mg/dL Creatinine (0.60-1.30) mg/dL Estimated GFR (>89) mL/min Lactate Dehydrogenase 252 H (87-241) U/L Folate 19.7 H (3.1-17.5) ng/mL 01/06/19 01/06/19 01/06/19 Range/Units 05:40 05:40 05:40 RBC 3.18 L (4.50-5.90) mil/mm3 Hgb 10.5 L (13.0-17.0) gm/dL Hct 30.2 L (39.0-51.0) % Plt Count 141 L (150-450) th/mm3 [place] % (Auto) (0.0-8.0) % Haptoglobin (30-200) mg/dL PT 20.0 H (9.8-11.6) sec Fibrinogen 433 H (227-377) mg/dL BUN 40 H (7-18) mg/dL Creatinine 1.69 H (0.60-1.30) mg/dL Estimated GFR 39 L (>89) mL/min Lactate Dehydrogenase (87-241) U/L Folate (3.1-17.5) ng/mL Short CBC 01/05/19 01/05/19 01/05/19 Range/Units 08:46 08:46 19:06 WBC 5.7 (4.0-11.0) th/mm3 Hgb 10.2 L 10.1 L 10.7 L (13.0-17.0) gm/dL Hct 29.0 L 29.1 L 31.3 L (39.0-51.0) % Plt Count 136 L (150-450) th/mm3 01/06/19 Range/Units 05:40 WBC 6.3 (4.0-11.0) th/mm3 Hgb 10.5 L (13.0-17.0) gm/dL Hct 30.2 L (39.0-51.0) % Plt Count 141 L (150-450) th/mm3 BMP 01/05/19 01/06/19 08:46 05:40 Sodium 139 138 Potassium 3.8 4.6 D Chloride 103 100 Carbon Dioxide 26.8 28.8 BUN 35 H 40 H Creatinine 1.58 H 1.69 H Calcium 8.7 8.9 <Gris Lopez T - 01/06/19 14:58> Physical Exam Vital signs: Vital Signs 01/06/19 00:00 01/06/19 01:00 01/06/19 04:00 Temperature 97.8 F 97.6 F Pulse Rate 79 80 79 Respiratory Rate 14 16 Blood Pressure 136/60 152/74 H Pulse Oximetry 98 97 01/06/19 07:30 01/06/19 08:20 01/06/19 12:00 Temperature 97.8 F 97.6 F Pulse Rate 80 80 81 Respiratory Rate 20 20 Blood Pressure 143/69 H 106/57 L Pulse Oximetry 96 94 L Intake & Output 01/06/19 01/06/19 01/07/19 06:59 18:59 06:59 Intake Total 420 / 420 Output Total 200 / 200 Balance 220 / 220 Weight 72.1 kg Intake: Oral 420 / 420 Output: Urine 200 / 200 Other: # Voids 3 Date of Last Bowel Movement 01/04/19 <Cayla Moreno - 01/06/19 21:08> Vital Signs 01/05/19 11:55 01/05/19 15:35 01/05/19 20:00 Temperature 98.0 F 98.0 F 97.6 F Pulse Rate 80 78 83 Respiratory Rate 18 18 14 Blood Pressure 131/67 106/58 L 144/65 H Pulse Oximetry 97 94 L 96 01/06/19 00:00 01/06/19 01:00 01/06/19 04:00 Temperature 97.8 F 97.6 F Pulse Rate 79 80 79 Respiratory Rate 14 16 Blood Pressure 136/60 152/74 H Pulse Oximetry 98 97 Intake & Output 01/05/19 01/06/19 01/06/19 18:59 06:59 18:59 Intake Total 420 / 420 Output Total 675 / 675 200 / 200 Balance -675 / -675 220 / 220 Weight 72.1 kg Intake: Oral 420 / 420 Output: Urine 675 / 675 200 / 200 Other: # Voids 400 3 Date of Last Bowel Movement 01/04/19 01/04/19 <Gris Lopez T - 01/06/19 08:33> Narrative: Narrative: GENERAL: well appearing elderly male in no apparent distress, siting up in bed. SKIN: Warm and dry. HEAD: Atraumatic. Normocephalic. EYES: Pupils equal and round. No scleral icterus. No injection or drainage. ENT: No nasal bleeding or discharge. Mucous membranes pink and moist. NECK: Trachea midline. No JVD. CARDIOVASCULAR: Regular rate and rhythm. No murmurs, gallops, or rubs. RESPIRATORY: No accessory muscle use. Clear to auscultation. Breath sounds equal bilaterally. GASTROINTESTINAL: Abdomen soft, non-tender, nondistended. Hepatic and splenic margins not palpable. MUSCULOSKELETAL: Extremities without significant edema. No cyanosis. No obvious deformities. NEUROLOGICAL: Awake and alert. No obvious cranial nerve deficits. Motor and strength in the arms and legs. Normal speech. <Gris Lopez - 01/06/19 14:58> Assessment and Plan - Assessment (1) Anemia Code(s): D64.9 - Anemia, unspecified Status: Acute (2) Community acquired pneumonia Code(s): J18.9 - Pneumonia, unspecified organism Status: Ruled-out (3) CHF (congestive heart failure) Code(s): I50.9 - Heart failure, unspecified Status: Acute (4) H/O mitral valve replacement with mechanical valve Code(s): Z95.2 - Presence of prosthetic heart valve Status: Acute (5) Subtherapeutic international normalized ratio (INR) Code(s): R79.1 - Abnormal coagulation profile Status: Acute (6) COPD (chronic obstructive pulmonary disease) Code(s): J44.9 - Chronic obstructive pulmonary disease, unspecified Status: Chronic (7) Nutrition, metabolism, and development symptoms Code(s): R63.8 - Other symptoms and signs concerning food and fluid intake Status: Acute <Cayla Moreno - 01/06/19 21:08> (1) Anemia Code(s): D64.9 - Anemia, unspecified Status: Acute (2) Community acquired pneumonia Code(s): J18.9 - Pneumonia, unspecified organism Status: Ruled-out (3) CHF (congestive heart failure) Code(s): I50.9 - Heart failure, unspecified Status: Acute (4) H/O mitral valve replacement with mechanical valve Code(s): Z95.2 - Presence of prosthetic heart valve Status: Acute (5) Subtherapeutic international normalized ratio (INR) Code(s): R79.1 - Abnormal coagulation profile Status: Acute (6) COPD (chronic obstructive pulmonary disease) Code(s): J44.9 - Chronic obstructive pulmonary disease, unspecified Status: Chronic (7) Nutrition, metabolism, and development symptoms Code(s): R63.8 - Other symptoms and signs concerning food and fluid intake Status: Acute <Gris Lopez T - 01/06/19 15:00> - Assessment and Plan 1. Anemia Patient is a 83-year-old male with significant past medical history of mechanical mitral valve on warfarin, triple bypass, pacemaker placement, GI bleed, and COPD who presented to the ED 01/03 at a physician's request due to borderline hemoglobin of 8. 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 F/U as outpatient 2. Community acquired pneumonia In the ED patient found to have CXR showing mild patchy infiltrate in the right middle lobe. Pulmonary venous congestion. Patient received 1 dose of azithromycin and Rocephin in the ED. VS WNL no leukocytosis Continue to monitor vital signs Titrate oxygen as needed to keep O2 sats greater than 92% We will discontinue azithromycin and Rocephin as there is no evidence of community acquired pneumonia based on normal pro calcitonin level and symptomatic improvement overall Consider starting antibiotics if patient develops fever Blood cultures no growth to date 3. CHF Patient history of CHF with complaint of worsening dyspnea on minimal exertion. Admitted for management of CHF exacerbation. Patient's vital signs within normal limits Comfortable while at rest. BNP 227 then 350 Patient is allergic to Lasix however has tolerated Bumex well for diuresis Bumex 1 mg IV daily for now. Home dose 1.mg PO daily held. placed on telemetry Serial troponins and EKG not suggestive of cardiac insult or ischemia Strict I's and O's Cardiac diet Continue Imdur 30 mg daily, hydralazine 25mg BID, carvedilol 6.25mg daily, digoxin 125mg daily. Continue home dose atorvastatin 10mg hs. Continue Ranexa 500mg TID. 4. H/O mitral valve replacement with mechanical valve Patient with history of mechanical mitral valve on warfarin. INR goal for this type of valve is 2.53.5. INR subtherapeutic 2.0 today Restart home coumadin at discharge continue heparin 5000 units SQ q8h until INR therapeutic level is reached for coumadin patient comfortable with checking INR and giving himself injections at home 5. Subtherapeutic INR See plan above 6. COPD Patient with chronic history of COPD Continue with Anoro-Ellipta at home dose Continue with Albuterol nebs PRN q4hr 7. Nutrition, metabolism, and development symptoms Fluids: Not indicated at this time Electrolytes: Replete as needed Diet cardiac diet, low sodium and fluid restriction DVT prophylaxis: Patient started on heparin 5000 units 3 times daily on 01/05 Dispo: discharge home today with heparin SQ q8h, f/u with Dr. Jain outpatient <Gris Lopez - 01/06/19 15:10> - Attending Attestation Patient seen and examined, and discussed this morning with resident team. I agree with assessment and management as documented and discussed with me. and daughter at bedside. Pt without complaints. Pt reports that he does not want to undergo scope, as he does not believe it is worth the risk. He reports no blood in his stool, and he understands that he has been hemoccult negative x 2. As pt no longer wants to have GI procedure performed, will discharge home today. Pt expresses understanding on how to inject his heparin and has a home iNR monitoring device. He will d/c heparin once his INR is in range 2.5-3.5. Pt ecouraged to make appt with PCP, yard worker, and diesel engine mechanic. Greater than 30 minutes spent counselling and coordinating care at discharge. <Cayla Moreno - 01/06/19 21:08>
[2019-01-06] MEDS: Isosorbide Mononitrate 30 MG ER 24HR Tablet (Imdur) PO SCH (08:53)
[2019-01-06] MEDS: hydrALAZINE 25 MG Tablet PO SCH (08:54)
[2019-01-06] MEDS: Carvedilol 6.25 MG Tablet PO SCH (08:54)
[2019-01-06] MEDS: Senna/Docusate Sodium 8.6/50 MG Tablet PO SCH (08:54)
[2019-01-06] MEDS: Digoxin 125 MCG Tablet PO SCH (08:54)
[2019-01-06] MEDS: Ranolazine 500 MG 12HR ER Tablet PO SCH ×2 (09:27→13:36)
[2019-01-06 10:20] VITALS: RESP 20
--- NOTE | 2019-01-06 13:42 | P.PNONC ---
Subjective Interval history: Patient excited to be going home today. He has been given Dr. Jain's contact information and his information has been sent to new patient referrals for follow-up appointment. He wants no complaints at this time. Objective Vital Signs/Intake & Output: Vital Signs 01/05/19 15:35 01/05/19 20:00 01/06/19 00:00 Temperature 98.0 F 97.6 F 97.8 F Pulse Rate 78 83 79 Respiratory Rate 18 14 14 Blood Pressure 106/58 L 144/65 H 136/60 Pulse Oximetry 94 L 96 98 01/06/19 01:00 01/06/19 04:00 01/06/19 07:30 Temperature 97.6 F Pulse Rate 80 79 80 Respiratory Rate 16 Blood Pressure 152/74 H Pulse Oximetry 97 01/06/19 08:20 Temperature 97.8 F Pulse Rate 80 Respiratory Rate 20 Blood Pressure 143/69 H Pulse Oximetry 96 Intake & Output 01/05/19 01/06/19 01/06/19 18:59 06:59 18:59 Intake Total 420 / 420 Output Total 675 / 675 200 / 200 Balance -675 / -675 220 / 220 Weight 72.1 kg Intake: Oral 420 / 420 Output: Urine 675 / 675 200 / 200 Other: # Voids 400 3 Date of Last Bowel Movement 01/04/19 01/04/19 Result Diagrams: 01/06/19 05:40 01/06/19 05:40 Laboratory Results: Laboratory Results - last 24 hr 01/05/19 01/05/19 01/06/19 19:06 23:44 05:40 WBC 6.3 RBC 3.18 L Hgb 10.7 L 10.5 L Hct 31.3 L 30.2 L MCV 94.8 MCH 33.0 MCHC 34.8 RDW 16.1 Plt Count 141 L MPV 8.9 PT INR APTT Fibrinogen Sodium Potassium Chloride Carbon Dioxide Anion Gap BUN Creatinine Estimated GFR Random Glucose Calcium Direct Antiglob Test Negative 01/06/19 01/06/19 05:40 05:40 WBC RBC Hgb Hct MCV MCH MCHC RDW Plt Count MPV PT 20.0 H INR 2.0 APTT 28.1 Fibrinogen 433 H Sodium 138 Potassium 4.6 D Chloride 100 Carbon Dioxide 28.8 Anion Gap 9 BUN 40 H Creatinine 1.69 H Estimated GFR 39 L Random Glucose 91 Calcium 8.9 Direct Antiglob Test Culture Results: Microbiology 01/03/19 14:20 Aerobic Blood Culture - Preliminary Blood - Peripheral No growth in 3 days Anaerobic Blood Culture - Preliminary No growth in 3 days 01/03/19 14:19 Aerobic Blood Culture - Preliminary Blood - Peripheral No growth in 3 days Anaerobic Blood Culture - Preliminary No growth in 3 days 01/04/19 00:21 Stool Occult Blood (SERG) - Final Stool Hemoccult negative Medications: Active Medications Generic Name Dose Route Start Last Admin Trade Name Mukeshq PRN Reason Stop Dose Admin Atorvastatin Calcium 10 mg 01/03/19 18:00 01/05/19 18:41 Lipitor PO 10 mg QPM IVA Administration Bumetanide 1 mg 01/03/19 18:00 01/06/19 08:53 Bumex Inj IV.PUSH 1 mg DAILY IVA Administration Carvedilol 6.25 mg 01/04/19 09:00 01/06/19 08:54 Coreg PO 6.25 mg DAILY IVA Administration Digoxin 125 mcg 01/04/19 09:00 01/06/19 08:54 Lanoxin PO 125 mcg DAILY IVA Administration Finasteride 5 mg 01/04/19 18:00 01/05/19 18:42 Proscar PO 5 mg QPM IVA Administration Heparin Sodium (Porcine) 5,000 units 01/05/19 17:00 01/06/19 08:53 Heparin Inj SQ 5,000 units Q8H IVA Administration Hydralazine HCl 25 mg 01/03/19 21:00 01/06/19 08:54 Apresoline PO 25 mg BID IVA Administration Isosorbide Mononitrate 30 mg 01/04/19 09:00 01/06/19 08:53 Imdur PO 30 mg DAILY IVA Administration Ranolazine 500 mg 01/04/19 18:00 01/06/19 13:36 Ranexa PO 500 mg TID [facility] Administration Senna/Docusate Sodium 1 tab 01/03/19 21:00 01/06/19 08:54 Kia-Colace PO 1 tab BID [facility] Administration Sodium Chloride 2 ml 01/03/19 21:00 01/06/19 08:58 Ns Flush IV.FLUSH 2 ml BID [facility] Administration Tamsulosin HCl 0.4 mg 01/03/19 21:00 01/06/19 08:54 Flomax PO 0.4 mg BID IVA Administration Umeclidinium/Vilanterol 1 inhalation 01/03/19 17:00 01/05/19 17:26 Anoro-Ellipta 62.5/25 Mcg Inh INH 1 inhalation Q24H IVA Administration Objective Remarks: GENERAL: Well-nourished, well-developed elderly male patient in no acute distress. SKIN: Warm and dry. HEAD: Normocephalic. EYES: No scleral icterus. No injection or drainage. NECK: Supple, trachea midline. CARDIOVASCULAR: Regular rate and rhythm without murmurs. RESPIRATORY: Breath sounds equal bilaterally. No accessory muscle use. GASTROINTESTINAL: Abdomen soft, non-tender, nondistended. EXTREMITIES: No cyanosis, or edema. MUSCULOSKELETAL: Adequate muscle tone. NEUROLOGICAL: No obvious focal deficit. Awake, alert, and oriented x3. PSYCHIATRIC: Appropriate mood and affect; insight and judgment normal. Assessment/Plan - Plan Mr. Mariee is a pleasant 83-year-old gentleman, currently hospitalized after coming to the ER with epistaxis. Hematology was consulted for anemia and thrombocytopenia. Plan: 1. 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 2. Patient cleared for discharge from an hematology standpoint. His information has been sent to new patient referrals, he needs follow-up appointment next Sunday with Dr. Jain for further workup and to the cause of his hemolysis. Patient has also been given Dr. Jain's outpatient contact information. - Attending Statement The exam, history, and the medical decision-making described in the above note were completed with the assistance of the mid-level provider. I reviewed and agree with the findings presented. I attest that I had a [id number] encounter with the patient on the same day, and personally performed and documented my assessment and findings in the medical record. 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 Therefore I do not think that he needs bone marrow biopsy. I discussed this with the patient and he agrees. Patient is trying to get the bone marrow biopsy results from 4-5 years ago from [place] Okay to discharge from my standpoint I will see him in the office next week Sign off Available as needed
--- NOTE | 2019-01-06 13:55 | P.PNGI ---
Subjective Interval history: Patient awake and alert Sitting up in chair at bedside Denies abdominal pain nausea vomiting or any noted bleeding States bowel movement this a.m. soft and brown Declining endoscopic procedures at this time Physical Exam Vital signs: Vital Signs 01/05/19 15:35 01/05/19 20:00 01/06/19 00:00 Temperature 98.0 F 97.6 F 97.8 F Pulse Rate 78 83 79 Respiratory Rate 18 14 14 Blood Pressure 106/58 L 144/65 H 136/60 Pulse Oximetry 94 L 96 98 01/06/19 01:00 01/06/19 04:00 01/06/19 07:30 Temperature 97.6 F Pulse Rate 80 79 80 Respiratory Rate 16 Blood Pressure 152/74 H Pulse Oximetry 97 01/06/19 08:20 Temperature 97.8 F Pulse Rate 80 Respiratory Rate 20 Blood Pressure 143/69 H Pulse Oximetry 96 Intake & Output 01/05/19 01/06/19 01/06/19 18:59 06:59 18:59 Intake Total 420 / 420 Output Total 675 / 675 200 / 200 Balance -675 / -675 220 / 220 Weight 72.1 kg Intake: Oral 420 / 420 Output: Urine 675 / 675 200 / 200 Other: # Voids 400 3 Date of Last Bowel Movement 01/04/19 01/04/19 - Constitutional no acute distress, cooperative - Routine HEENT Exam Head: Present: normocephalic - Routine Respiratory Exam Present: CTA bilaterally - Routine Abdominal Exam Present: soft, normoactive bowel sounds. Absent: tenderness, distended, guarding, firm - Routine Extremities Exam Absent: edema - Routine Skin Exam Present: dry, warm Results - Labs CBC & Chem 7: 01/06/19 05:40 01/06/19 05:40 Laboratory Results - last 24 hr 01/05/19 01/05/19 01/06/19 19:06 23:44 05:40 WBC 6.3 RBC 3.18 L Hgb 10.7 L 10.5 L Hct 31.3 L 30.2 L MCV 94.8 MCH 33.0 MCHC 34.8 RDW 16.1 Plt Count 141 L MPV 8.9 PT INR APTT Fibrinogen Sodium Potassium Chloride Carbon Dioxide Anion Gap BUN Creatinine Estimated GFR Random Glucose Calcium Total Bilirubin Direct Bilirubin Lactate Dehydrogenase Direct Antiglob Test Negative 0201/06/19 01/06/19 05:40 05:40 05:40 WBC RBC Hgb Hct MCV MCH MCHC RDW Plt Count MPV PT 20.0 H INR 2.0 APTT 28.1 Fibrinogen 433 H Sodium 138 Potassium 4.6 D Chloride 100 Carbon Dioxide 28.8 Anion Gap 9 BUN 40 H Creatinine 1.69 H Estimated GFR 39 L Random Glucose 91 Calcium 8.9 Total Bilirubin 1.9 H Direct Bilirubin 0.4 H Lactate Dehydrogenase 311 H Direct Antiglob Test Microbiology 01/03/19 14:20 Blood - Peripheral Aerobic Blood Culture - Preliminary No growth in 3 days 01/03/19 14:20 Blood - Peripheral Anaerobic Blood Culture - Preliminary No growth in 3 days 01/03/19 14:19 Blood - Peripheral Aerobic Blood Culture - Preliminary No growth in 3 days 01/03/19 14:19 Blood - Peripheral Anaerobic Blood Culture - Preliminary No growth in 3 days Assessment and Plan (1) On Coumadin for atrial fibrillation Status: Acute Code(s): Z78.9 - Other specified health status (2) Anemia Status: Acute Code(s): D64.9 - Anemia, unspecified (3) CHF (congestive heart failure) Status: Acute Code(s): I50.9 - Heart failure, unspecified (4) H/O mitral valve replacement with mechanical valve Status: Acute Code(s): Z95.2 - Presence of prosthetic heart valve (5) COPD (chronic obstructive pulmonary disease) Status: Chronic Code(s): J44.9 - Chronic obstructive pulmonary disease, unspecified (6) Subtherapeutic international normalized ratio (INR) Status: Acute Code(s): R79.1 - Abnormal coagulation profile (7) Thrombocytopenia Status: Acute Code(s): D69.6 - Thrombocytopenia, unspecified - Plan 01/04/2019 Patient is a very pleasant 83-year-old male with significant medical history of CHF atrial fibrillation COPD hypercholesterolemia and surgical history of cardiac stent mitral valve replacement status post CABG. patient is on Coumadin for A. fib and the MVR at home and manage by his plant etiologist Dr. Machado. Approximately 2 weeks ago patient started having shortness of breathing and dyspnea on exertion. Denies syncopal episode. Patient admits to having black tarry stool during the last 2 weeks not associated with nausea vomiting and no abdominal pain. Denies fever. No NSAIDs use .patient presented to emergency room when his dyspnea is became severe. Last night patient has an episode of severe epistaxis but was otherwise controlled. Patient received 1 unit of cryo packed red blood cells with IV Bumex to prevent him from going into heart failure. Our service is consulted for extensive cardiac history and downtrending H&H and history of GI bleed. Assessment Acute blood loss probably upper GI bleed -initial hemoglobin was 9.5 deep down to 8.2 Received 1 unit of packed red blood cells overnight hemoglobin currently is 10.7 hematocrit 31.1 platelet 124 INR 1.9 Melena Anemia thrombocytopenia Supratherapeutic INR CHF -BNP elevated 250 Liver enzymes are normal AST 15 ALT 14 slightly elevated alkaline phosphatase at 118 01/05/2019, patient is able to eat without nausea vomiting this a.m. and no abdominal pain. Discussed with patient the need for reflux precautions, hydration with caution. Cardiology consult pending. Discussed with patient the need for EGD colonoscopy once he is stable from a cardiac perspective and can come off his Coumadin, we will need to monitor INR and treat accordingly. Labs reviewed which show hemoglobin 9.6 Anemia but appears to be stable for now no obvious GI bleed this a.m. Hyperbilirubinemia currently 4.1, stable but no elevation in LFTs Patient denies any epistaxis for the last few days, patient has been on Coumadin therapy 01/06/2019 Possible GI bleed Melena stool Atrial fibrillation with cardiac stent and mitral valve replacement history status post CABG Patient declining endoscopic procedures at this time. Denies any obvious bleeding abdominal pain or nausea vomiting. States soft brown stool this a.m. WBC 6.3 hemoglobin 10.5 hematocrit 30.2 MCV 94.8 stable INR 2.0 Chart review reveals hematology assessment--differentials to include chronic renal failure anemia versus myelodysplastic syndrome. Mild thrombocytopenia may be due to myelodysplastic syndrome until proven otherwise. Normocytic normochromic chronic anemia Plan Diet as tolerated Monitor for bleeding Monitor hemoglobin and hematocrit Avoid NSAIDs Patient agrees to follow-up with GI if bleeding reoccurs as patient reports he may be discharged home today Anticoagulant therapy as per cardiology and attending Supportive care This patient has been seen by myself and Dr. Pedro and this note is written on his behalf - Attending Attestation Dr. Pedro
--- NOTE | 2019-01-06 16:11 | P.CONCA ---
History of Present Illness Service: Cardiology Consult date: 01/06/19 Requesting Physician: Leobardo Chin Reason for Consult: Cardiac clearance for colonoscopy Primary Care Provider: Bridger Snowden Chief Complaint: border line low hgb History of Present Illness: This is an 83-year-old male known to Dr. Machado with a past medical history of a mitral valve replacement with a [employer] mitral valve, on Warfarin, ICD placement, right iliac PTCA, ASHD s/p CABG, CHF, GERD, GI bleed, COPD, shingles, fatigue, hyperlipidemia, cardiomyopathy, PVD and chronic kidney disease. He present to the Emergency Department on 01/03/19, from his PCP office due to his hemoglobin being 8. He states that he did have symptoms of weakness, off balance and worsening dyspnea on exertion a few days prior to going to his PCP. He states that these symptoms have worsened since October and that he has suffered severe nose bleeds in which he has been hospitalized multiple times requiring transfusions. He currently has no signs of active bleeding. He denies any CP, pressure, palpitations, dizziness or edema. He does complain of dyspnea on exertion but not at rest. Review of Systems All other systems reviewed negative except as stated in HPI PMFSH - History History Provided By: Patient - Medical History Medical History: Medical History (Last Reviewed 01/04/19 @ 09:00 by Mary Kate Chahal) CHF (congestive heart failure) COPD (chronic obstructive pulmonary disease) High cholesterol Pacemaker - Surgical History Surgical History: Surgical History (Last Reviewed 01/04/19 @ 09:00 by Mary Kate Chahal) H/O heart artery stent H/O mitral valve replacement S/P CABG x 3 - Tobacco History Second Hand Smoke Exposure: No Tobacco Use In Past 30 Days: No Smoking Status: Former smoker Tobacco Type: Cigarettes - Alcohol History How Often Do You Have a Drink Containing Alcohol: Never - Substance Use History Substance History: No History of Abuse - Travel History Recent Travel in the [place] Within the Last 8 Weeks: No Recent Travel Out of the Country Within the Last 8 Weeks: No - Immunization History Tetanus Immunization: >5 Years Hx Influenza Vaccine This Season: Yes Medications and Allergies Allergies Allergy/AdvReac Type Severity Reaction Status Date / Time lisinopril Allergy Severe COUGH Verified 01/03/19 13:02 chlorpheniramine Allergy Mild PASSED OUT Verified 01/03/19 13:02 hydrocodone Allergy Mild PASSED OUT Verified 01/03/19 13:02 furosemide Allergy Unknown Rash Verified 01/03/19 13:02 Home Medications Medication Instructions Recorded Confirmed Type albuterol sulfate 2 puff INHALATION Q4H PRN 01/03/19 01/03/19 History aspirin 81 mg PO DAILY 01/03/19 01/03/19 History atorvastatin 10 mg PO QPM 01/03/19 01/03/19 History bumetanide 2 mg PO DAILY PRN 01/03/19 01/03/19 History carvedilol 6.25 mg PO DAILY 01/03/19 01/03/19 History digoxin 0.125 mg PO DAILY 01/03/19 01/03/19 History finasteride 5 mg PO QPM 01/03/19 01/03/19 History hydralazine 25 mg PO BID 01/03/19 01/03/19 History isosorbide mononitrate 30 mg PO DAILY 01/03/19 01/03/19 History nitroglycerin 0.4 mg SUBLINGUAL Q5M PRN 01/03/19 01/03/19 History potassium chloride 20 meq PO WEEKLY 01/03/19 01/03/19 History ranolazine 500 mg PO BID 01/03/19 01/03/19 History sucralfate 1 g PO TID 01/03/19 01/03/19 History tamsulosin 0.4 mg PO BID 01/03/19 01/03/19 History umeclidinium-vilanterol [Anoro 1 inh INHALATION Q24H 01/03/19 01/03/19 History Ellipta] warfarin 2.5 mg PO DIRECTED 01/03/19 01/03/19 History warfarin 5 mg PO QWEEK 01/03/19 01/03/19 History Ranexa 500 mg PO TID 01/04/19 01/04/19 History Exam Vital signs: Vital Signs 01/05/19 20:00 01/06/19 00:00 01/06/19 01:00 Temperature 97.6 F 97.8 F Pulse Rate 83 79 80 Respiratory Rate 14 14 Blood Pressure 144/65 H 136/60 Pulse Oximetry 96 98 01/06/19 04:00 01/06/19 07:30 01/06/19 08:20 Temperature 97.6 F 97.8 F Pulse Rate 79 80 80 Respiratory Rate 16 20 Blood Pressure 152/74 H 143/69 H Pulse Oximetry 97 96 01/06/19 12:00 Temperature Pulse Rate 80 Respiratory Rate Blood Pressure Pulse Oximetry Intake & Output 01/05/19 01/06/19 01/06/19 18:59 06:59 18:59 Intake Total 420 / 420 Output Total 675 / 675 200 / 200 Balance -675 / -675 220 / 220 Weight 72.1 kg Intake: Oral 420 / 420 Output: Urine 675 / 675 200 / 200 Other: # Voids 400 3 Date of Last Bowel Movement 01/04/19 01/04/19 - Constitutional no acute distress - Routine HEENT Exam Head: Present: normocephalic Eye: Present: PERRL ENT: Present: mucous membranes moist - Routine Neck Exam Present: full ROM - Routine Respiratory Exam Present: CTA bilaterally - Routine Cardiovascular Exam Present: S1, S2. Absent: murmur, gallop, rubs - Routine Abdominal Exam Present: normoactive bowel sounds - Routine Extremities Exam Present: full ROM, pulses intact, normal capillary refill. Absent: cyanosis, clubbing, edema - Routine Skin Exam Present: intact - Routine Neurological Exam Present: oriented X3 Results 01/06/19 05:40 01/06/19 05:40 Cardiac Enzymes 01/05/19 01/06/19 Range/Units 08:46 05:40 Lactate Dehydrogenase 252 H 311 H (87-241) U/L Coagulation 01/05/19 01/06/19 Range/Units 08:46 05:40 PT 20.1 H 20.0 H (9.8-11.6) sec APTT 28.1 (23.4-31.7) sec CBC 01/04/19 01/05/19 01/05/19 Range/Units 18:25 08:46 08:46 WBC 5.7 (4.0-11.0) th/mm3 RBC 3.05 L (4.50-5.90) mil/mm3 Hgb 9.6 L 10.2 L 10.1 L (13.0-17.0) gm/dL Hct 28.4 L 29.0 L 29.1 L (39.0-51.0) % Plt Count 136 L (150-450) th/mm3 Neut # (Auto) 3.6 (1.8-7.7) th/mm3 Lymph # (Auto) 1.3 (1.0-4.8) th/mm3 [place] # (Auto) 0.6 (0.0-0.9) th/mm3 Eos # (Auto) 0.2 (0.0-0.4) th/mm3 Baso # (Auto) 0.0 (0.0-0.2) th/mm3 01/05/19 01/06/19 Range/Units 19:06 05:40 WBC 6.3 (4.0-11.0) th/mm3 RBC 3.18 L (4.50-5.90) mil/mm3 Hgb 10.7 L 10.5 L (13.0-17.0) gm/dL Hct 31.3 L 30.2 L (39.0-51.0) % Plt Count 141 L (150-450) th/mm3 Neut # (Auto) (1.8-7.7) th/mm3 Lymph # (Auto) (1.0-4.8) th/mm3 [place] # (Auto) (0.0-0.9) th/mm3 Eos # (Auto) (0.0-0.4) th/mm3 Baso # (Auto) (0.0-0.2) th/mm3 Comprehensive Metabolic Panel 01/05/19 01/06/19 01/06/19 Range/Units 08:46 05:40 05:40 Sodium 139 138 (136-145) meq/L Potassium 3.8 4.6 D (3.5-5.1) meq/L Chloride 103 100 (98-107) meq/L Carbon Dioxide 26.8 28.8 (21.0-32.0) meq/L BUN 35 H 40 H (7-18) mg/dL Creatinine 1.58 H 1.69 H (0.60-1.30) mg/dL Calcium 8.7 8.9 (8.5-10.1) mg/dL Direct Bilirubin 0.4 H (0.0-0.2) mg/dL Intake and Output 01/06/19 01/06/19 01/06/19 06:59 14:59 22:59 Intake Total 420 / 420 Output Total 200 / 200 Balance 220 / 220 Intake: Oral 420 / 420 Output: Urine 200 / 200 Other: # Voids 3 Weight 72.1 kg Assessment and Plan - Assessment (1) Anemia Code(s): D64.9 - Anemia, unspecified Status: Acute (2) CHF (congestive heart failure) Code(s): I50.9 - Heart failure, unspecified Status: Acute (3) H/O mitral valve replacement with mechanical valve Code(s): Z95.2 - Presence of prosthetic heart valve Status: Acute (4) COPD (chronic obstructive pulmonary disease) Code(s): J44.9 - Chronic obstructive pulmonary disease, unspecified Status: Chronic (5) Nutrition, metabolism, and development symptoms Code(s): R63.8 - Other symptoms and signs concerning food and fluid intake Status: Acute (6) Subtherapeutic international normalized ratio (INR) Code(s): R79.1 - Abnormal coagulation profile Status: Acute (7) On Coumadin for atrial fibrillation Code(s): Z78.9 - Other specified health status Status: Acute (8) Thrombocytopenia Code(s): D69.6 - Thrombocytopenia, unspecified Status: Acute - Plan We will continue with current cardiac treatment plan. GI evaluation and treatment in progress. The risk of cardiac complications is increased, but not prohibitive, he can be cleared for colonoscopy if needed from a cardiac standpoint. We will continue to monitor the patient during his hospitalization. He will follow up with his primary loading rack supervisor, Dr. Machado, after discharge from the hospital. The patient was seen and evaluated by Dr. Maciel who participated in care, management and decision making. - Attending Attestation Patient seen and examined. I reviewed and agree with the evaluation and plan as presented. No angina or CHF exacerbation. He is cleared for colonoscopy if needed from cardiac standpoint. F/u w Dr. Machado as outpatient.
[2019-01-06 19:50] VITALS: BP 106/57; PULSE 81; TEMP 97.6; O2SAT 94
--- NOTE | 2019-01-07 09:21 | P.DS ---
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 Patient reports that yesterday he had symptoms of weakness, off balance and worsening dyspnea on exertion. The dyspnea on exertion has been progressively worsening since October when he began having severe nosebleeds. Since October he has been hospitalized multiple times for nosebleeds requiring blood transfusions. Of note patient also has a history of GI bleed that occurred last year after removal of a colon polyp per . At that time colonoscopy was only significant for 1 polyp which was removed and negative for malignancy. Today patient reports that he feels okay. His shortness of breath is only an issue if he exerts himself, even minimal exertion causes dyspnea, simple things such as tying his shoes or walking to the bathroom. Currently denies chest pain, shortness of breath while at rest, fever, cough, current nose bleed or blood in stool, nausea, vomiting, or syncope. Endorses chills overnight, progressive poor appetite. Patient last felt at his baseline before Oct 2018. Patient has dual residency with [place] and [place]. Him and his usually spend the zhu in [place]. He arrived to [place] via car on December 02 and was hospitalized for nosebleeds at [facility] requiring transfusion of 1 unit of packed red blood cell. Ehs Teacher: Dr. Machado Past medical history: Mechanical mitral valve, 1987 Pacemaker, 1997 History of surgical sponge left in chest for 4 yrs after initial pacemaker was placed triple by-pass, 1987 COPD GI bleed Past surgical history: Appendectomy as a child Stent placement in Right groin, Social history: Patient ambulates independently without need of assistive devices. Cigarettes, patient quit in 1987, former smoker 35 yrs of smoking Alcohol, rarely Illicit:none Family history: Father- from [place] at age 62 Mother- stroke Sister- stroke Brother- heart issues DS: Diagnosis - Discharge Diagnosis (1) Anemia Status: Acute (2) CHF (congestive heart failure) Status: Acute (3) H/O mitral valve replacement with mechanical valve Status: Acute (4) Subtherapeutic international normalized ratio (INR) Status: Acute (5) COPD (chronic obstructive pulmonary disease) Status: Chronic (6) Nutrition, metabolism, and development symptoms Status: Acute DS: Medications - Discharge Medications Prescriptions: heparin (porcine) 5,000 units SUBCUT Q8H 5 Days #7.5 ml DS: Summary Hospital Course: 83-year-old male with history of mechanical valve on warfarin, triple bypass, pacemaker placement, COPD who presented with hemoglobin of 8 on 01/03. Patient was transfused with 1 unit of leukocyte reduced packed red blood cells and given 1 mg of IV Bumex x2 on 01/04/18. GI and heme on or consulted due to anemia. Patient was Hemoccult negative x2. Patient declined EGD procedure. Patient had prior bone marrow biopsy. Will be following outpatient with hem/ onc for further studies. - Time Spent with Patient Total time spent providing and/or coordinating discharge services: Greater than 30 minutes - Quality: VTE Deep Vein Thrombosis/Pulmonary Embolism Present on Admission: No Exam Vital signs: Vital Signs 01/06/19 12:00 Temperature 97.6 F Pulse Rate 81 Respiratory Rate 20 Blood Pressure 106/57 L Pulse Oximetry 94 L Results Labs on day of discharge: Labs from last 24 hours 01/06/19 05:40 Total Bilirubin 1.9 H Direct Bilirubin 0.4 H Lactate Dehydrogenase 311 H Preliminary micro results at discharge 01/03/19 14:20 Aerobic Blood Culture - Preliminary Blood - Peripheral No growth in 3 days Anaerobic Blood Culture - Preliminary No growth in 3 days 01/03/19 14:19 Aerobic Blood Culture - Preliminary Blood - Peripheral No growth in 3 days Anaerobic Blood Culture - Preliminary No growth in 3 days - Impressions ITS Impressions Chest X-Ray 01/04/19 00:00 CONCLUSION: Minimal density in the right middle lobe with slight interstitial prominence but improved from previous study. Discharge Plan - Discharge Disposition Patient Disposition: 01 Discharge Home - Discharge Condition Condition: Stable - Discharge Order Discharge Orders: Discharge Order (Routine); Ordered 01/06/19 Ordered By: Gris Moore Oncology Clear for Discharge (Routine); Ordered 01/06/19 Ordered By: Lora White - Physicians Team Primary Care Provider: Birdger Snowden Attending Provider: Cayla Moreno Other Providers: Sue Mcnulty MD ; Andres Jain MD ; Prabhakar Pinedo MD
== END 2019-01-06 15:04 | disposition home or self-care (01) | DRG 811 ==
LOC: NEDA 11:14 → NEPE 11:14 → NEDA 16:20 → NEPHCDU 16:32 → N04 01-05 20:01
PROVIDERS: ADMIT Family Medicine; ATTEND Family Medicine
CPT/HCPCS: 36430; 71010; 71020; 71045; 71046; 80048; 80053; 81001; 82247; 82248; 82272; 82607; 82668; 82728; 82746; 83010; 83520; 83540; 83550; 83615; 83880; 84145; 84165; 84484; 85014; 85018; 85025; 85027; 85044; 85384; 85610; 85730; 86077; 86850; 86870; 86880; 86900; 86901; 86902; 86920; 86922; 87040; 90761; 90765; 90766; 90775; 90776; 94618; 94620; 94664; 96361; 96365; 96366; 96375; 96376; 97161; 99285; G0378; G8987; G8988; J0456; J0696; J1644; J7050; P9016